=== PATIENT | male | born 1940 | race Caucasian/White ===

== ENCOUNTER 2018-05-03 02:04 | Inpatient (IN) ==
--- NOTE | 2018-05-03 02:21 | PROVIDER DOCUMENTATION ---
HPI-Neurological Disorder - General Chief Complaint: Altered Mental Status Stated Complaint: ams Time Seen by Provider: 05/03/18 02:06 Source: patient, family, EMS (called to transport pt now with AMS and chest congestion, diaphoresis) Allergies/Adverse Reactions: Patient Allergies Allergy/AdvReac Type Severity Reaction Status Date / Time metformin Allergy DIARRHEA Verified 05/02/18 18:55 Home Medications: Home Medication List Medication Instructions Recorded Confirmed Last Taken Type LISINOpril [Prinivil] 40 mg PO QAM 09/07/14 05/03/18 12/17/14 20:00 History Cyanocobalamin (Vitamin B-12) 1,000 mcg PO DIRECTED #1 ml 05/28/15 05/03/18 Unknown Rx [Vitamin B-12] ATORVAstatin [Lipitor] 40 mg PO QHS 05/03/18 05/03/18 Unknown History Azathioprine [Imuran] 50 mg PO DAILY 05/03/18 05/03/18 Unknown History Clopidogrel Bisulfate [Plavix] 75 mg PO HS 05/03/18 05/03/18 Unknown History Donepezil [Aricept] 5 mg PO QHS 05/03/18 05/03/18 Unknown History Ergocalciferol (Vitamin D2) 50,000 unit PO Q7D 05/03/18 05/03/18 Unknown History [Vitamin D] Fluorouracil 5 gm MC BID 05/03/18 05/03/18 Unknown History Lisinopril 20 mg PO HS 05/03/18 05/03/18 Unknown History Lorazepam [Ativan] 1 mg PO QHS 05/03/18 05/03/18 Unknown History Memantine HCl [Namenda Xr] 28 mg PO DAILY 05/03/18 05/03/18 Unknown History Quetiapine [Seroquel] 75 mg PO QHS 05/03/18 05/03/18 Unknown History Sertraline [Zoloft] 100 mg PO DAILY 05/03/18 05/03/18 Unknown History l Gasseri/B Bifidum/B Longum 1 each PO PRN PRN 05/03/18 05/03/18 Unknown History [Goodson' [facility] Capsule] - History of Present Illness-Neuro Nature of Presenting Problem: seen and evaluated here, [facility] night of may 02 and brought back with AMS , cough and congestion per Dr Cheryle Goodson. Dr Goodson viewed the patient with me on arrival and certifies to me that pt is not at his jovial self and baseline of earlier this same night. Complaint earlier viist tonight of weakness, cough, SOB, diarrhea past 4 days. CXR read a s no acute changes, chronic problems of A Fib, DM and component of Dementia. Onset/Duration: reports: 1-3 hours ago Timing: reports: still present (became poorly responsive to NH staff and family) Character of Altered Mental Status: reports: disoriented, confused, decreased responsiveness Any recent trauma/injury?: reports: none New weakness or altered sensation location:: reports: none Cognitive Baseline: poor alertness Gait Baseline: walks without assistance Associated Symptoms: reports: short of breath, confusion, fatigue, weakness Similar Symptoms Previously?: Yes Recently seen or treated by another doctor?: Yes Review of Systems - Adult - REVIEW OF SYSTEMS - ADULT Constitutional: reports: no symptoms reported, see roland PICKERING Eyes: reports: no symptoms reported Ears, Nose, Mouth & Throat: reports: no symptoms reported Cardiovascular: reports: no symptoms reported Respiratory: reports: cough, shortness of breath, other (RATTLE IN CHEST 1 WK.) Gastrointestinal: reports: no symptoms reported Genitourinary: reports: no symptoms reported Musculoskeletal: reports: no symptoms reported Integumentary: reports: no symptoms reported Neurological: reports: no symptoms reported Psychiatric: reports: no symptoms reported Endocrine: reports: no symptoms reported Hematologic/Lymphatic: reports: no symptoms reported Allergic/Immunologic: reports: no symptoms reported All Other Systems: Reviewed and Negative Past History - Adult - PAST MEDICAL HISTORY-ADULT Review of Records: reports: Old Records Reviewed Major Childhood Illnesses: reports: denies history Cardiovascular: reports: A-Fib, CAD, HTN, hyperlipidemia Respiratory: reports: denies history Gastrointestinal: reports: denies history Obstetrical/Gynecological: reports: denies history Genitourinary: reports: prostate cancer Musculoskeletal: reports: other (gout; myasthenia gravis) Neurological: reports: dementia Endocrine/Immune: reports: Diabetes Other Conditions: reports: denies history - PRIOR SURGERIES/PROCEDURES Surgical/Procedure History: reports: reviewed, not pertinent, other (TURP, thymus gland removal) - IMMUNIZATION STATUS Childhood Immunizations: See Nurse Assessment Flu Vaccine: UTD - FAMILY HISTORY Family History: reviewed, not pertinent Physical Exam- Neurological - Physical Exam-Neuro Initial Vital Signs Reviewed: Yes General Appearance: mild distress, slow to respond Eye Exam: bilateral eye: PERRL, EOMI HENMT: moist mucous membranes Head Injury: no evidence of injury Neck: non-tender, full range of motion Respiratory: rales, other (mild tachypnea and mild increased WOB, diaphoretic) Cardiovascular: irregularly irregular Abdominal Exam: normal bowel sounds, non tender, soft Extremity: normal range of motion, non-tender. 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 negative: facial asymmetry, facial droop Motor/Sensory: no motor deficit Neurologic: grossly normal Integumentary: normal color, diaphoresis Psych/Mental Status: disoriented x 3 - Glascow Coma Scale Best Eye Response: (4) open spontaneously Best Verbal Response: (2) incomprehsible sounds Best Motor Response: (5) localizes to pain Total Glascow Score: 11 (clearly decreased from 3-4hr ago) Progress - PLAN OF CARE/RESULTS Progress/Plan/Lab Results: Vital Signs - 8 hr 05/03/18 02:14 05/03/18 02:39 05/03/18 03:09 Temperature 99.6 F Pulse Rate 88 90 89 Respiratory Rate 20 19 26 H Blood Pressure 95/65 99/74 120/92 O2 Sat by Pulse Oximetry 90 L 95 94 L 05/03/18 03:14 05/03/18 03:16 05/03/18 03:19 Temperature Pulse Rate 84 84 83 Respiratory Rate 20 18 15 Blood Pressure 111/78 108/87 O2 Sat by Pulse Oximetry 96 96 97 05/03/18 03:21 05/03/18 03:24 05/03/18 03:29 Temperature Pulse Rate 83 87 84 Respiratory Rate 18 20 22 Blood Pressure 114/76 103/80 O2 Sat by Pulse Oximetry 97 97 97 05/03/18 03:31 05/03/18 03:34 05/03/18 03:39 Temperature Pulse Rate 86 88 87 Respiratory Rate 28 H 20 27 H Blood Pressure 114/74 126/107 O2 Sat by Pulse Oximetry 97 97 97 05/03/18 03:41 05/03/18 03:44 05/03/18 03:49 Temperature Pulse Rate 100 H 90 87 Respiratory Rate 19 24 16 Blood Pressure 107/78 96/71 O2 Sat by Pulse Oximetry 97 97 96 05/03/18 03:51 05/03/18 03:54 05/03/18 03:59 Temperature Pulse Rate 85 84 87 Respiratory Rate 14 21 19 Blood Pressure 110/75 106/79 O2 Sat by Pulse Oximetry 96 97 97 05/03/18 04:01 05/03/18 04:04 05/03/18 04:09 Temperature Pulse Rate 85 86 88 Respiratory Rate 16 17 20 Blood Pressure 99/84 102/70 O2 Sat by Pulse Oximetry 96 97 97 05/03/18 04:11 05/03/18 04:14 05/03/18 04:19 Temperature Pulse Rate 81 79 84 Respiratory Rate 24 16 18 Blood Pressure 94/70 118/75 O2 Sat by Pulse Oximetry 97 97 95 05/03/18 04:21 05/03/18 04:24 05/03/18 04:29 Temperature Pulse Rate 88 89 85 Respiratory Rate 20 26 H 17 Blood Pressure 104/75 111/69 O2 Sat by Pulse Oximetry 97 97 95 05/03/18 04:31 05/03/18 04:34 05/03/18 04:39 Temperature Pulse Rate 84 81 88 Respiratory Rate 18 24 19 Blood Pressure 103/68 114/85 O2 Sat by Pulse Oximetry 96 96 96 05/03/18 04:41 05/03/18 04:44 05/03/18 04:49 Temperature Pulse Rate 83 83 84 Respiratory Rate 19 20 16 Blood Pressure 115/84 113/80 O2 Sat by Pulse Oximetry 96 96 96 05/03/18 04:51 05/03/18 04:54 05/03/18 05:00 Temperature Pulse Rate 85 90 Respiratory Rate 20 19 18 Blood Pressure 102/72 O2 Sat by Pulse Oximetry 96 96 91 L 05/03/18 05:14 05/03/18 05:15 05/03/18 05:19 Temperature Pulse Rate 81 76 81 Respiratory Rate 16 16 15 Blood Pressure 103/74 107/72 O2 Sat by Pulse Oximetry 97 96 94 L 05/03/18 05:21 05/03/18 05:26 05/03/18 05:30 Temperature Pulse Rate 82 84 83 Respiratory Rate 16 16 19 Blood Pressure 107/72 O2 Sat by Pulse Oximetry 92 L 93 L 96 05/03/18 05:34 05/03/18 05:40 05/03/18 05:49 Temperature Pulse Rate 83 89 86 Respiratory Rate 15 14 14 Blood Pressure 96/71 O2 Sat by Pulse Oximetry 96 93 L 93 L 05/03/18 05:51 05/03/18 05:55 05/03/18 06:00 Temperature Pulse Rate 92 H 86 85 Respiratory Rate 14 15 16 Blood Pressure 96/66 O2 Sat by Pulse Oximetry 92 L 96 94 L 05/03/18 06:04 05/03/18 06:10 05/03/18 06:19 Temperature Pulse Rate 81 81 89 Respiratory Rate 15 14 17 Blood Pressure 96/67 O2 Sat by Pulse Oximetry 93 L 93 L 95 05/03/18 06:21 05/03/18 06:30 05/03/18 06:38 Temperature 97.3 F L Pulse Rate 85 86 84 Respiratory Rate 13 13 20 Blood Pressure 97/72 O2 Sat by Pulse Oximetry 94 L 93 L 96 05/03/18 02:34 Influenza Screen - Final Nasopharyngeal Laboratory Results - last 24 hr 05/03/18 05/03/18 05/03/18 02:22 02:26 02:34 WBC RBC Hgb Hct MCV MCH MCHC RDW Std Deviation Plt Count MPV Neut % (Auto) Lymph % (Auto) Mcintosh % (Auto) Eos % (Auto) Baso % (Auto) Neut # (Auto) Lymph # (Auto) Mcintosh # (Auto) Eos # (Auto) Baso # (Auto) D-Dimer, Quantitative Specimen Type Sample Site pH pCO2 pO2 HCO3 Base Excess Oxyhemoglobin ABG O2 Sat (Calculated) ABG O2 Saturation ABG Carboxyhemoglobin ABG Methemoglobin David Test A-a O2 Difference Total Hemoglobin Lactate Liter Flow Blood Gas Modality FiO2 % Sodium Potassium Chloride Carbon Dioxide Anion Gap BUN Creatinine Estimated GFR/1.73 m2 BUN/Creatinine Ratio Glucose POC Glucose 174 H D Calculated Osmolality Calcium Magnesium Ammonia Troponin T < 0.010 Zjc-M-Gjznyaltksk Pept Plasma Lactate 1.8 Urine Source Urine Color Urine Turbidity Urine pH Ur Specific [place] Urine Protein Ur Glucose (Stick) Ur Ketones (Stick) Urine Blood Urine Nitrite Urine Bilirubin Urobilinogen Dipstick Urine Leukocytes Urine WBC (Auto) Urine RBC (Auto) U Epithel Cells (Auto) Urine Bacteria (Auto) 05/03/18 05/03/18 05/03/18 02:34 02:34 02:34 WBC RBC Hgb Hct MCV MCH MCHC RDW Std Deviation Plt Count MPV Neut % (Auto) Lymph % (Auto) Mcintosh % (Auto) Eos % (Auto) Baso % (Auto) Neut # (Auto) Lymph # (Auto) Mcintosh # (Auto) Eos # (Auto) Baso # (Auto) D-Dimer, Quantitative 0.98 H Specimen Type Sample Site pH pCO2 pO2 HCO3 Base Excess Oxyhemoglobin ABG O2 Sat (Calculated) ABG O2 Saturation ABG Carboxyhemoglobin ABG Methemoglobin David Test A-a O2 Difference Total Hemoglobin Lactate Liter Flow Blood Gas Modality FiO2 % Sodium 142 Potassium 3.9 Chloride 108 H Carbon Dioxide 20 L Anion Gap 14 BUN 19 Creatinine 1.2 Estimated GFR/1.73 m2 59 BUN/Creatinine Ratio 16 Glucose 191 H POC Glucose Calculated Osmolality 291 Calcium 8.6 L Magnesium 1.7 Ammonia 49 Troponin T Ylq-T-Mnnaehyutgc Pept Plasma Lactate Urine Source Urine Color Urine Turbidity Urine pH Ur Specific [employer] [place] Urine Protein Ur Glucose (Stick) Ur Ketones (Stick) Urine Blood Urine Nitrite Urine Bilirubin Urobilinogen Dipstick Urine Leukocytes Urine WBC (Auto) Urine RBC (Auto) U Epithel Cells (Auto) Urine Bacteria (Auto) 05/03/18 05/03/18 05/03/18 02:34 02:34 03:08 WBC 5.67 RBC 4.63 L Hgb 15.2 Hct 45.7 MCV 98.7 MCH 32.8 H MCHC 33.3 RDW Std Deviation 12.7 Plt Count 119 L MPV 10.3 Neut % (Auto) 89.6 H Lymph % (Auto) 7.9 L Mcintosh % (Auto) 2.3 Eos % (Auto) 0.0 Baso % (Auto) 0.2 Neut # (Auto) 5.08 Lymph # (Auto) 0.45 L Mcintosh # (Auto) 0.13 Eos # (Auto) 0.00 Baso # (Auto) 0.01 D-Dimer, Quantitative Specimen Type Sample Site pH pCO2 pO2 HCO3 Base Excess Oxyhemoglobin ABG O2 Sat (Calculated) ABG O2 Saturation ABG Carboxyhemoglobin ABG Methemoglobin David Test A-a O2 Difference Total Hemoglobin Lactate Liter Flow Blood Gas Modality FiO2 % Sodium Potassium Chloride Carbon Dioxide Anion Gap BUN Creatinine Estimated GFR/1.73 m2 BUN/Creatinine Ratio Glucose POC Glucose Calculated Osmolality Calcium Magnesium Ammonia Troponin T Vdi-[id number]-Vrcblxccgtt Pept 3108 H Plasma Lactate Urine Source CATH Urine Color YELLOW Urine Turbidity CLEAR Urine pH 5.5 Ur Specific [place] 1.013 Urine Protein 70 A Ur Glucose (Stick) NEGATIVE Ur Ketones (Stick) NEGATIVE Urine Blood SMALL A Urine Nitrite NEGATIVE Urine Bilirubin NEGATIVE Urobilinogen Dipstick NORMAL Urine Leukocytes NEGATIVE Urine WBC (Auto) <10 Urine RBC (Auto) <10 U Epithel Cells (Auto) <10 Urine Bacteria (Auto) NEGATIVE 05/03/18 03:45 WBC RBC Hgb Hct MCV MCH MCHC RDW Std Deviation Plt Count MPV Neut % (Auto) Lymph % (Auto) [place] % (Auto) Eos % (Auto) Baso % (Auto) Neut # (Auto) Lymph # (Auto) Mcintosh # (Auto) Eos # (Auto) Baso # (Auto) D-Dimer, Quantitative Specimen Type ARTERIAL Sample Site R RADIAL pH 7.36 pCO2 36 pO2 121 H HCO3 21.5 Base Excess -4.4 L Oxyhemoglobin 96.4 ABG O2 Sat (Calculated) 21.6 ABG O2 Saturation 99.5 ABG Carboxyhemoglobin 1.70 ABG Methemoglobin 1.4 David Test YES A-a O2 Difference 119.0 Total Hemoglobin 15.8 Lactate 1.40 Liter Flow 5.0 Blood Gas Modality CANNULA FiO2 % 40.0 Sodium Potassium Chloride Carbon Dioxide Anion Gap BUN Creatinine Estimated GFR/1.73 m2 BUN/Creatinine Ratio Glucose POC Glucose Calculated Osmolality Calcium Magnesium Ammonia Troponin T Ukq-K-Xyimvzkwkyz Pept Plasma Lactate Urine Source Urine Color Urine Turbidity Urine pH Ur Specific [employer] Urine Protein Ur Glucose (Stick) Ur Ketones (Stick) Urine Blood Urine Nitrite Urine Bilirubin Urobilinogen Dipstick Urine Leukocytes Urine WBC (Auto) Urine RBC (Auto) U Epithel Cells (Auto) Urine Bacteria (Auto) Orders Category Date Time Status [place] Insertion ORDERED Care 05/03/18 02:32 Active Saline Loc NOW Care 05/03/18 02:28 Active CHEST-PORTABLE [RAD] Stat Exams 05/03/18 02:[address] HEAD W/O CONTRAST [CT] Stat Exams 05/03/18 04:38 Taken ABG [RESP] Routine Lab 05/03/18 03:45 Completed AMMONIA [CHEM] Stat Lab 05/03/18 02:34 Completed BLOOD CULTURE [BLDCUL] Stat Lab 05/03/18 02:34 Results BMP [BASIC METABOLIC PANEL] [CHEM] Stat Lab 05/03/18 02:34 Completed CBC WITH ELECTRONIC DIFF [HEME] Stat Lab 05/03/18 02:34 Completed D-DIMER [COAG] Stat Lab 05/03/18 02:34 Completed INFLUENZA SCREEN A/B Stat Lab 05/03/18 02:34 Completed LACTATE, PLASMA [CHEM] Stat Lab 05/03/18 02:34 Completed MAGNESIUM [CHEM] Stat Lab 05/03/18 02:34 Completed PRO B-NATRIURETIC PEPTIDE Stat Lab 05/03/18 02:34 Completed TROPONIN T Stat Lab 05/03/18 02:22 Completed URINALYSIS W/POSS RFLX CULT [URINALYSIS] Stat Lab 05/03/18 03:08 Completed Furosemide [Lasix] Med 05/03/18 04:37 Discontinued 40 mg IV NOW ONE EKG [EKG] Stat Ther 05/03/18 02:28 Ordered EKG [EKG] Stat Ther 05/03/18 02:28 Ordered Result Diagrams: 05/03/18 02:34 05/03/18 02:34 - XRAY 1 XRAY Study: Chest Impression: Abnormal (FLUID OVERLOADED,), See EMR Report - CT/MRI 1 CT Study: Head Impression: Normal, See EMR Report - CONSULTS/PCP/HOSPITALIST Notification #1 *Consult/PCP/Hospitalist*: DR GONZALEZ Time Discussed: 05:00 (DECIDED AGAINST CTA CHEST) Consult Disposition: Admit Departure - Departure Date of Disposition Decision: 05/03/18 Time of Disposition Decision: 06:57 DIAGNOSIS: SOB (shortness of breath), Altered mental state, Fluid overload Disposition: ADMITTED INPATIENT 09 Certified Medical Emergency: Emergent Condition: Fair - Critical Care Note This patient required my direct & personal management of CC.: No Attestation - Physician/ SOFIE Attestation Patient care was provided by Advanced Practice Provider:: No The physician spent face to face time with patient:: Yes Advanced Practice Provider documentation review:: Supervising physician onsite and consulted in the evaluation and care of this patient. The physician did have a face to face encounter with the patient. - NIH Stroke Scale NIH Scale Untestable Comment: RESPONSIVE TO PAIN BUT NOT VERBAL STIMULATION Modified [place] Score Criteria: 3-moderate disability
[2018-05-03 03:00] LABS: BASO# 0.01 X1000 (0.0-0.2); BASO% 0.2 % (0.0-0.8); HEMATOCRIT 45.7 % (42.0-52.0); HEMOGLOBIN 15.2 g/dL (14.0-18.0); LYMPH# 0.45 X1000 (1.2-3.4); LYMPH% 7.9 % (20.5-51.1); MCH 32.8 PG (27-31); MCHC 33.3 g/dL (33-37); MCV 98.7 FL (81-99); MONO# 0.13 X1000 (0.11-0.59); MONO% 2.3 % (1.7-9.3); MPV 10.3 FL (7.4-10.4); NEUT# 5.08 X1000 (1.4-6.5); NEUT% 89.6 % (42.2-75.2); PLT 119 X1000 (130-400); RBC 4.63 XMIL (4.7-6.1); RDW 12.7 % (11.5-14.5); WBC 5.67 X1000 (4.8-10.8)
[2018-05-03 03:14] LABS: URINE SOURCE CATH
[2018-05-03 03:17] LABS: BILIRUBIN URINE NEGATIVE (NEGATIVE); BLOOD URINE SMALL (NEGATIVE); COLOR YELLOW; GLUCOSE URINE NEGATIVE (NEGATIVE); KETONE URINE NEGATIVE (NEGATIVE); LEUKOCYTES URINE NEGATIVE (NEGATIVE); NITRITE URINE NEGATIVE (NEGATIVE); PH URINE 5.5; PROTEIN URINE 70 mg/dL (NEGATIVE); SP GRAVITY URINE 1.013; TURBIDITY URINE CLEAR (CLEAR); UROBILINOGEN URINE NORMAL (NORMAL)
[2018-05-03 03:18] LABS: UR EPITHELIAL CELLS <10 /HPF (<10); URINE BACTERIA NEGATIVE /HPF; URINE RBC <10 /HPF (<10); URINE WBC <10 /HPF (<10)
[2018-05-03 03:33] LABS: CALCIUM 8.6 mg/dL (8.8-10.2); CREATININE 1.2 mg/dL (0.7-1.2); MAGNESIUM 1.7 mg/dL (1.5-2.7); POTASSIUM 3.9 mmol/L (3.5-5.1)
[2018-05-03 04:03] LABS: ALLEN TEST YES; BE -4.4 mmoll (-3.0-3.0); BLOOD TYPE ARTERIAL; HCO3-(ACT) 21.5 mmoll (20.0-26.0); METHB 1.4 % (0.0-1.5); MODALITY CANNULA; O2(CT) 21.6 mL/dL (15.0-23.0); O2HB 96.4 % (95.0-99.0); PCO2(98.6) 36 mmHg (35-45); PO2(98.6) 121 mmHg (60-100); SAMPLE BLOOD; SAO2 99.5 % (95.0-100.0); THB 15.8 g/dL (11.5-17.4); pH(98.6) 7.36 (7.35-7.45)
[2018-05-03] MEDS ORDERED: LASIX IV ONE (04:37)
--- NOTE | 2018-05-03 07:27 | EKG Report ---
Test Performed on : 05/03/2018 02:05:35 AM Test Reason : sob Blood Pressure : / mmHG Vent. Rate : 097 BPM Atrial Rate : 101 BPM P-R Int : 000 ms QRS Dur : 096 ms QT Int : 304 ms P-R-T Axes : 000 208 058 degrees QTc Int : 386 ms Atrial fibrillation. Right superior axis deviation Nonspecific ST and T wave abnormality Abnormal ECG No previous ECGs available Unconfirmed Result
--- NOTE | 2018-05-03 07:31 | Diag Imaging Result Doc PS360 ---
EXAM: CHEST-PORTABLE 05/03/2018 HISTORY: worsened SOB,rales TECHNIQUE: AP portable at 0 to 48 hours COMMENT: The lungs are less well-expanded than on 05/02/2018. There is some questionable increase in opacity in the medial right base which may be indicative of atelectasis or pneumonia. IMPRESSION: Questionable bronchopneumonia. Electronically signed by Jin Jordan 05/03/2018 7:28 AM
--- NOTE | 2018-05-03 08:27 | Diag Imaging Result Doc PS360 ---
EXAM: CT HEAD W/O CONTRAST INDICATION: AMS TECHNIQUE: This exam was performed using automated exposure control, adjustment of mA or kV according to patient size, and/or use of iterative reconstruction technique. COMPARISON: 05/24/2013 FINDINGS: There is low-attenuation in the periventricular and subcortical white matter suggesting fairly advanced microangiopathy that is essentially stable as compared to the previous study. There is moderate age-related diffuse brain atrophy. There is no definite acute infarct given the limited sensitivity of CT versus MRI. There is no discrete intracranial mass, mass effect, or intracranial hemorrhage. There is minimal right maxillary sinus mucosal thickening. Surrounding soft tissues and bony structures are essentially unremarkable, otherwise. IMPRESSION: Essentially stable chronic changes as described but no definite acute intracranial pathology. Electronically signed by Pelon Sanchez 05/03/2018 8:25 AM
[2018-05-03] MEDS ORDERED: XOPENEX NEB INH SCH (09:04)
[2018-05-03 09:10] LABS: INR 0.95; PROTIME 13.5 Seconds (11.0-16.0); PTT 25.8 Seconds (22.3-41.8)
[2018-05-03] MEDS: IMURAN PO SCH (10:40)
[2018-05-03] MEDS: ROCEPHIN 1 GM in NS 50 ML IV SCH (10:40)
[2018-05-03] MEDS: SOLU-MEDROL IV SCH ×2 (10:40→21:06)
[2018-05-03] MEDS: NAMENDA XR PO SCH (10:40)
[2018-05-03] MEDS: VITAMIN D PO SCH (10:40)
[2018-05-03] MEDS: ZOLOFT PO SCH (10:40)
[2018-05-03] MEDS: ZITHROMAX 500 MG/NS 500 MG/250 ML IVPB IV SCH (11:10)
--- NOTE | 2018-05-03 11:17 | ECHO REPORT ---
ORDER DATE: 05/03/2018 ECHOCARDIOGRAM: INDICATION: Dyspnea, volume overload. FINDINGS: 1. The right atrium appears normal in size at 3.3 cm. 2. Mild tricuspid regurgitation. RV systolic pressure of 27. 3. Normal RV size and systolic function. 4. Trace pulmonic insufficiency. 5. Normal left atrial size with a dimension of 3.6 cm. 6. No mitral valve prolapse. Trace mitral regurgitation. 7. Normal LV size, end-diastolic dimension of 5.1. Mild to moderate left ventricular hypertrophy with a posterior and interventricular septal wall thickness of 1.4 cm each. Reduced LV systolic function with an estimated EF of 35% to 40%. Previous echo was noted to have an EF of 35% in 2014. There is global hypokinesis. 8. Aortic valve opens well. There is mild insufficiency. No stenosis. 9. Aorta appears somewhat enlarged with an ascending thoracic aorta dimension of 4.3 cm. 10. No pericardial effusion seen. cc: MD Arcadio Quinn MD
[2018-05-03] MEDS: XOPENEX NEB INH SCH ×3 (14:45→23:35)
[2018-05-03] MEDS: HUMALOG SUBQ SCH ×3 (17:27→21:05)
--- NOTE | 2018-05-03 19:29 | PROGRESS NOTE ---
DATE: 05/03/2018 SUBJECTIVE: The patient's chart was reviewed. In summary, patient presented to the emergency department yesterday evening with shortness of breath. Upon arrival, patient was found to be in atrial fibrillation with rapid ventricular response. The patient was provided a dose of metoprolol. Additionally, he was found to have upper respiratory symptoms consistent with an upper respiratory tract infection. The patient was treated with IV prednisone and Rocephin therapy. He was discharged back to rehabilitation. Upon arrival home, his nighttime medications were given. Unfortunately, he then became unresponsive and was returned to the emergency department. Upon arrival, a repeat evaluation was pursued. Chest x-ray suggested questionable rhonchi with pneumonia. The patient was treated supportively. IV Lasix was provided. With supportive care, patient's mental status returned to baseline. The patient was originally seen this morning. At that time, patient was interactive. This evening, patient is more interactive. He currently is being treated with Rocephin, azithromycin, and Solu-Medrol for his upper respiratory condition. His energy level remains very low. He remains quite weak from his current condition. He denies fevers, chills, nausea, vomiting, or chest discomfort at present time. OBJECTIVE: Vital Signs: Temperature 97.9, heart rate 94, respirations 20, blood pressure 119/82. General: No acute distress. Cardiovascular: Irregularly irregular. No significant murmurs, rubs or gallops. Pulmonary: Clear to auscultation bilaterally. Abdomen: Soft, nontender, nondistended. Positive bowel sounds. Extremities: Moves all extremities well. No significant clubbing, cyanosis or edema. Dermatologic: Evaluation reveals no evidence of rash. ASSESSMENT AND PLAN: 1. Bronchopneumonia - Initially, patient was noted to have considerable wheezing and shortness of breath. Aggressive intervention was pursued. The patient was placed on Rocephin, azithromycin, IV Solu-Medrol, and bronchodilators. With this aggressive intervention, his symptoms have improved considerably. We will continue his current regimen for now. 2. Mild volume overload - Lasix was provided in the Emergency Department. Echocardiogram suggested low, but preserved ejection fraction of 35% to 40%. We will remain aware. 3. Atrial fibrillation with rapid ventricular response - Patient has a prolonged history of atrial fibrillation. He is not a candidate for anticoagulation secondary to his extreme fall risk. We will continue his home regimen. We will adjust as necessary. I suspect the rapid ventricular response was reactive to his underlying illness. 4. Hyperglycemia - This likely is secondary to steroid intervention. We will continue sliding scale insulin. 5. Hypertension - Patient's blood pressure is reasonably controlled at present time. His medications have been adjusted appropriately. 6. Hyperlipidemia - We will continue patient on atorvastatin therapy. 7. Myasthenia gravis - We will continue azathioprine therapy. Symptoms are controlled. 8. Alteration of mental status - This likely was secondary to medications. His mentation has returned to baseline. We will continue his home regimen. 9. Diarrhea - Stool studies returned negative. We will continue to hold [*] therapy. 10. Profound weakness - This has been increasing over the course of the last several weeks. We will treat his acute issues as noted. We will continue physical therapy. Patient may require rehabilitation at discharge. 11. Disposition - At this point, patient continues to require [facility] care in a hospital setting. We will plan discharge to his assisted living facility versus rehab once appropriate. cc: Arcadio Cueva MD
[2018-05-03] MEDS ORDERED: LIPITOR PO SCH (21:00)
[2018-05-03] MEDS: PRINIVIL PO SCH (21:06)
[2018-05-03] MEDS: ATIVAN PO SCH (21:06)
[2018-05-03] MEDS: LIPITOR PO SCH (21:06)
[2018-05-03] MEDS: SEROQUEL PO SCH (21:06)
[2018-05-03] MEDS: PLAVIX PO SCH (21:06)
[2018-05-04] MEDS: XOPENEX NEB INH SCH ×5 (03:35→20:08)
[2018-05-04] MEDS: HUMALOG SUBQ SCH ×4 (06:57→21:45)
[2018-05-04] MEDS: LOVENOX SUBQ SCH (09:09)
[2018-05-04] MEDS: ROCEPHIN 1 GM in NS 50 ML IV SCH (09:09)
[2018-05-04] MEDS: SOLU-MEDROL IV SCH (09:09)
[2018-05-04] MEDS: NAMENDA XR PO SCH (09:10)
[2018-05-04] MEDS: ZOLOFT PO SCH (09:10)
--- NOTE | 2018-05-04 09:47 | HISTORY AND PHYSICAL ---
PRIMARY CARE PROVIDER: Dr. Arcadio Cueva. CHIEF COMPLAINT: Altered mental status. HISTORY OF PRESENT ILLNESS: Mr. Sanchez is a 77-year-old male who was seen yesterday in our emergency department on 05/02/2018 for some shortness of breath. During this time, he was found to be in atrial fibrillation with rapid ventricular response. He was given a dose of metoprolol as well as a dose of Solu-Medrol and a 1 L normal saline bag of fluids. He was discharged back to his assisted living facility at [place]. From what I understand, once he arrived back to the assisted living facility, they did give him his night medications of Ativan and Seroquel. Later on, after these medications being administered, the patient was found to be unresponsive and very drowsy. They did call an ambulance to bring him back to the ER for further evaluation. The patient was noted upon initial arrival back to the ER to be obtunded. At this time, he was alert and oriented x0 and was reported to be unresponsive to painful stimuli. For further evaluation, they did perform a CT head noncontrast which showed no acute intracranial abnormalities. They did repeat a chest x-ray which did show that he may have questionable bronchopneumonia, as well. EKG at this time did still show atrial fibrillation, though the rate is controlled at this time at 97. Upon the time of our assessment, the patient's mentation had improved greatly. He was awake and alert. He was oriented to person and place but not time. The patient does have some dementia, and his states that it is not unusual for him to not know the year or month. He was able to recognize his at bedside and state her full name. She reports at this time he does seem to be back to his baseline mentation. Though they have reported that the patient has had increased weakness, he has had reportedly 4 days of diarrhea that has been loose which is brown in color, though she denies him having any abdominal pain, nausea or vomiting. He has had chest congestion with a cough, as well, though at this time, the patient denies any headache, chest pain, dysuria, or pain or swelling in extremities. The patient does have a history of having an ejection fraction of 35% to 40%. He was complaining of some dyspnea and did have rales noted upon initial arrival to the ER. It was thought maybe that the 1 L normal saline bolus that was given during his prior ER visit might have caused him to be slightly fluid overloaded. He did receive a one-time dose of Lasix IV in the ER. He has been started on empiric antibiotics for bronchopneumonia and blood cultures have been obtained. At this time, the patient will be admitted for further treatment and evaluation. REVIEW OF SYSTEMS: A 14-point review of systems was conducted with the patient and all were negative except for pertinent positives mentioned in the above HPI. PAST MEDICAL HISTORY: 1. History of mild carotid artery disease diagnosed in 2014. 2. Ischemic heart disease. 3. History of right renal cyst. 4. Dementia. 5. Diabetes which has been currently diet controlled. 6. Essential hypertension. 7. Gout. 8. History of hematuria followed by Dr. Bauman. 9. History of prostate cancer. 10. History of hyperlipidemia. 11. Insomnia. 12. Left ventricular hypertrophy. 13. Myasthenia gravis. 14. History of atrial fibrillation, though the patient is not on anticoagulation therapy at this time due to he has been deemed not a candidate due to his extreme fall risk. PAST SURGICAL HISTORY: 1. Thymectomy secondary to myasthenia gravis. 2. Prostatectomy. SOCIAL HISTORY: The patient is a resident at [facility], [place]. He is . His was present during the time of my examination. The patient has no known history of tobacco, alcohol, or illicit drug use. FAMILY HISTORY: 1. Positive for his father passing away at age 83 secondary to coronary artery disease. 2. His mother secondary to complications from hepatoma. ALLERGIES: The patient has allergies to metformin, Exelon patches, and Norvasc. HOME MEDICATIONS: 1. Lipitor 40 mg p.o. at bedtime. 2. Imuran 50 mg p.o. daily. 3. Plavix 75 mg p.o. at bedtime. 4. Vitamin B12 1000 mcg p.o. as directed. 5. Aricept 5 mg p.o. at bedtime. 6. Vitamin D 50,000 units p.o. every 7 days. 7. Fluorouracil 5 [*] 8. [employer] Capsule one p.o. p.r.n. 9. Lisinopril 20 mg p.o. at bedtime. 10. Prinivil 40 mg p.o. each morning. 11. Ativan 1 mg p.o. at bedtime. 12. Namenda XR 28 mg p.o. daily. 13. Seroquel 75 mg p.o. at bedtime. 14. Zoloft 100 mg daily. DIAGNOSTIC DATA/LABORATORY RESULTS: White blood cell count is 5670, hemoglobin 15.2, hematocrit 45.7, platelet count 119. PT 13.5, INR 0.95, PTT 25.8. D-dimer 0.98. Sodium 142, potassium 3.9, chloride 108, serum bicarbonate 20, BUN 19, creatinine 1.2 with a GFR of 59, glucose 191, calcium 8.6, magnesium 1.7. Ammonia level is 49. Troponin is less than 0.01. ProBNP 3108. Plasma lactate 1.8. Urinalysis obtained via catheter was positive for protein and a small amount of blood though was negative for glucose, ketones, nitrites, leukocytes, white blood cells, or bacteria. Arterial blood gases were obtained on nasal cannula at 40% FiO2: pH 7.36, pCO2 is 36, pO2 is 121, HCO3 is 21.5 with a base excess of negative 4.4 and an O2 saturation of 99.5. EKG showed atrial fibrillation with a right superior axis deviation at a rate of 97 with a QTc of 386. Head CT showed essentially stable chronic changes described but no definite intracranial pathology. Please see report for full findings. Chest x-ray did show a questionable bronchopneumonia by evidence of a questionable increase in the opacity in the medial right base which may be indicative of atelectasis or pneumonia. PHYSICAL EXAMINATION: VITAL SIGNS: Temperature 97.4, heart rate 85, respirations 19, blood pressure 109/75 with an oxygen saturation of 95% per nasal cannula at 3 L. GENERAL: Mr. Sanchez is a pleasant 77-year-old elderly male. He was resting in the ER stretcher. He was in no acute distress. He was awake and alert though was only oriented to person and place, not time. HEENT: Head is atraumatic, normocephalic. Pupils are equal, round, reactive to light, were 3 mm bilaterally and brisk. Oral mucosa is moist. Oropharynx is clear. NECK: Supple, trachea midline. CARDIOVASCULAR: The patient has S1, S2. No murmurs, gallops, or rubs appreciated, with irregularly irregular beat. PULMONARY: Clear to auscultation in bilateral upper strauss and left lower lung strauss, though the patient did have some very slight crackles noted in right lung base. ABDOMEN: Soft, nontender, nondistended. Bowel sounds were present in all 4 quadrants, were normoactive. EXTREMITIES: No cyanosis, clubbing, or edema noted. Pulse, motor and sensory were intact in all extremities. Radial pulses and pedal pulses were 2+ bilaterally. Capillary refill is less than 3. INTEGUMENTARY: The patient's skin is pink, warm and dry. NEUROLOGICAL: As previously mentioned, the patient is alert and oriented x2 to person and place though not time. Though he does appear to have some generalized weakness, there were no focal neurologic deficits noted at this time. ASSESSMENT AND PLAN: 1. Encephalopathy. This could be multifactorial. The patient does have underlying dementia, though after leaving the ER after his initial visit, he did return back to assisted living facility once given medications of Ativan and Seroquel and shortly after was found to be unresponsive, though it does appear that this medication has had some time to wear off that the patient's mentation has improved, and at this time according to his , he does appear to be back at his baseline mentation. His CT head without contrast was negative for any acute intracranial abnormalities. We will continue to follow this closely. We have ordered for q.4 h. neuro checks. 2. Weakness. This could be multifactorial, as well. The patient has had a 4-day history of diarrhea as well as does now have a possible bronchopneumonia. This could be contributing to this. We will continue with physical therapy evaluation and will continue to follow. 3. Possible bronchopneumonia. The patient has been started on antibiotics of Rocephin and azithromycin. Blood cultures have been obtained. We will continue with incentive spirometry, as well, and will continue to follow. 4. Mild fluid volume overload. The patient does have a last known ejection fraction of 35% to 40%. Upon his initial ER visit on 05/02/2018, he was given a 1 L normal saline bolus. The patient did return dyspneic and was noted initially to have some rales upon his second ER visit. He was given a dose of IV Lasix, and since this time, this does seem to have improved. The patient now just has some very slight crackles noted in the right lung base. He is not dyspneic at this time. He is maintaining good oxygen saturation with minimal oxygen supplementation of nasal cannula at 2-3 L. Will continue to follow. We have placed orders for repeat echocardiogram for this morning. 5. History of atrial fibrillation. The patient did initially come into the ER on his first visit on May 02 with atrial fibrillation with RVR. He was given a dose of metoprolol, and since that time his heart rate has improved. He still is in atrial fibrillation though it is rate controlled with his heart rate in the 80s to 90s. We will continue to follow this. The patient was noted to be not a candidate for anticoagulation due to his fall risk. 6. Hyperlipidemia. His Lipitor has been continued. 7. Hypertension. His lisinopril has been continued. 8. Hyperglycemia. The patient does reportedly have a history of diabetes that has been diet controlled, though he did receive a dose of Solu-Medrol in the ER on his first visit on May 02. His hyperglycemia may be secondary to this. He has had coverage for this placed with sliding scale lispro insulin. 9. Diarrhea. The patient has had a 4-day history of diarrhea. Stool studies have been ordered. We are awaiting those results at this time. We will continue to follow. The patient has been placed on the medical floor with telemetry. He will have vital signs and neuro checks q.4 h. Will do strict intake and output. He will be on a healthy heart diet. DVT prophylaxis is being provided with Lovenox 40 mg subcutaneous q.24 h. Further orders and recommendations pending hospital course, diagnostic studies, and physician evaluation. Dictated by BRIANNA Sesay for Jose Ernst MD cc: MD Arcadio Jalloh MD
[2018-05-04] MEDS: IMURAN PO SCH (10:28)
--- NOTE | 2018-05-04 11:41 | PROGRESS NOTE ---
DATE: 05/04/2018 SUBJECTIVE: Overnight, patient did reasonably well. Per patient's , he did have 1 episode of delirium which quickly resolved. Cough and congestion are present, but improving. Shortness of breath is improving. The patient continues to have loose stools. Stool studies from yesterday returned negative. There has been no evidence of fevers, chills, nausea, vomiting or chest discomfort. The patient does continue to have considerable weakness. OBJECTIVE: Vital Signs: T-max 98.5 degrees, heart rate 82 to 94, respirations 15 to 25, blood pressure 119 to 158/69 to 93. General: No acute distress. Cardiovascular: Irregularly irregular. No significant murmurs, rubs, or gallops. Pulmonary: Clear to auscultation bilaterally. Abdomen: Soft, nontender, nondistended. Positive bowel sounds. Extremities: Moves all extremities well. No significant clubbing, cyanosis, or edema. Dermatologic: Evaluation reveals no evidence of rash. LABORATORY DATA: None. ASSESSMENT AND PLAN: 1. Bronchopneumonia-this was noted per chest x-ray. He is being treated with Rocephin, azithromycin, intravenous Solu-Medrol and bronchodilators. His overall condition has improved considerably from yesterday. We will continue our current regimen with the exception of decreasing Solu-Medrol to 20 mg daily. We will continue to encourage incentive spirometry and aspiration precautions. 2. Mild volume overload-patient was provided Lasix while in the emergency department. The patient appears euvolemic today. We will hold off on any further diuresis. Echocardiogram suggested an ejection fraction between 35% and 40%, similar to echocardiogram in 2014.. 3. Atrial fibrillation with rapid ventricular response-patient has achieved resolution. Heart rate is within normal limits today. He is not a candidate for full anticoagulation secondary to his extreme fall risk. 4. Hyperglycemia/diabetes-steroids have increased his blood sugars. We will continue sliding scale insulin. 5. Hypertension-blood pressure is reasonably controlled on his current regimen. 6. Hyperlipidemia-we will continue atorvastatin therapy. 7. Myasthenia gravis-the patient's symptoms are controlled with azathioprine therapy. 8. Alteration of mental status-overall, patient's condition has improved considerably. He is approaching his baseline dementia. We will continue his home regimen with the exception of holding Aricept secondary to diarrhea. 9. Diarrhea-the patient's stool studies returned negative. We will continue to hold Aricept therapy. We will consider adding cholestyramine therapy while hospitalized. 10. Profound weakness-this is increased over the course of the last several weeks. We will continue treating his acute issues as described above. We will continue physical therapy. At time of discharge, we will need to consider whether rehabilitation or home to assisted living with physical therapy is appropriate. 11. Disposition-at this point, patient continues to require [facility] care in a hospital setting. We will plan discharge home or to rehab once appropriate. cc: Arcadio Cueva MD
[2018-05-04] MEDS: ZITHROMAX 500 MG/NS 500 MG/250 ML IVPB IV SCH (12:28)
[2018-05-04] MEDS: PLAVIX PO SCH (21:44)
[2018-05-04] MEDS: PRINIVIL PO SCH (21:44)
[2018-05-04] MEDS: ATIVAN PO SCH (21:45)
[2018-05-04] MEDS: LIPITOR PO SCH (21:45)
[2018-05-04] MEDS: SEROQUEL PO SCH (21:45)
[2018-05-05] MEDS: XOPENEX NEB INH SCH ×7 (00:14→23:30)
[2018-05-05 06:56] LABS: BASO# 0.01 X1000 (0.0-0.2); BASO% 0.1 % (0.0-0.8); HEMATOCRIT 44.2 % (42.0-52.0); HEMOGLOBIN 14.5 g/dL (14.0-18.0); IMM GRAN# 0.03 X1000 (0.0-0.04); IMM GRAN% 0.3 % (0.0-0.5); LYMPH# 1.18 X1000 (1.2-3.4); LYMPH% 10.8 % (20.5-51.1); MCH 32.3 PG (27-31); MCHC 32.8 g/dL (33-37); MCV 98.4 FL (81-99); MONO# 1.14 X1000 (0.11-0.59); MONO% 10.4 % (1.7-9.3); MPV 10.6 FL (7.4-10.4); NEUT# 8.56 X1000 (1.4-6.5); NEUT% 78.4 % (42.2-75.2); PLT 142 X1000 (130-400); RBC 4.49 XMIL (4.7-6.1); RDW 12.4 % (11.5-14.5); WBC 10.92 X1000 (4.8-10.8)
[2018-05-05 07:02] LABS: LYMPHS 10 % (21-51); MONO 24 % (1-9); SEGS 66 % (42-75)
[2018-05-05 07:06] LABS: AGAP 13; ALB/GLOB RATIO 0.9; ALBUMIN 3.4 g/dL (3.5-5.0); ALKALINE PHOSPHATASE 53 U/L (32-122); BUN 41 mg/dL (8-22); CALCIUM 7.9 mg/dL (8.8-10.2); CHLORIDE 109 mmol/L (98-107); COSMO 301; ESTIMATED GFR > 60; GLUCOSE 111 mg/dL (70-104); GOT 31 U/L (10-34); GPT 12 U/L (10-44); POTASSIUM 3.1 mmol/L (3.5-5.1); SODIUM 146 mmol/L (136-145); TCO2 24 mmol/L (25-35); TOTAL PROTEIN 7.1 g/dL (6.3-8.3)
[2018-05-05] MEDS: HUMALOG SUBQ SCH ×4 (07:09→21:53)
[2018-05-05] MEDS ORDERED: KLOR-CON PO ONE (08:46)
[2018-05-05] MEDS ORDERED: SOLU-MEDROL IV SCH (09:00)
[2018-05-05] MEDS: ROCEPHIN 1 GM in NS 50 ML IV SCH (10:44)
[2018-05-05] MEDS: LOVENOX SUBQ SCH (10:45)
[2018-05-05] MEDS: ZOLOFT PO SCH (10:45)
[2018-05-05] MEDS: NAMENDA XR PO SCH (10:46)
[2018-05-05] MEDS: IMURAN PO SCH (10:46)
[2018-05-05] MEDS: ZITHROMAX 500 MG/NS 500 MG/250 ML IVPB IV SCH (10:46)
--- NOTE | 2018-05-05 14:39 | PROGRESS NOTE ---
DATE: 05/05/2018 SUBJECTIVE: Yesterday, patient's noted increasing confusion and agitation. He did not sleep well overnight. From a pulmonary standpoint, he is achieving improvement. He denies significant cough, congestion, and wheezing. Additionally, his loose stools are slowly improving. The patient continues to have considerable weakness. Physical therapy has been consulted. OBJECTIVE: Vital Signs: T-max 98.0, heart rate 69 to 100, respirations 15 to 20, blood pressure 135 to 151/77 to 95. General: No acute distress. Cardiovascular: Irregularly irregular. No significant murmurs, rubs, or gallops. Pulmonary: Clear to auscultation bilaterally. Abdomen: Soft, nontender, nondistended. Positive bowel sounds. Extremities: Moves all extremities well. No significant clubbing, cyanosis, or edema. Dermatologic: Evaluation reveals no evidence of rash. LABORATORY DATA: White blood cell count 10.92, hemoglobin 14.5, hematocrit 44.2, platelet count 142,000. Sodium 146, potassium 3.1, chloride 109, bicarbonate 24. BUN 41, creatinine 1.0, glucose 111, calcium 7.9. Total bilirubin 0.40, total protein 7.1, albumin 3.4, alkaline phosphatase 53, AST 31, ALT 53. ASSESSMENT AND PLAN: 1. Bronchopneumonia-patient is currently being treated with Rocephin, azithromycin, intravenous Solu-Medrol and bronchodilators. We will transition patient from Solu-Medrol to prednisone therapy. We will continue to encourage incentive spirometry and aspiration precautions. Symptoms are improving. 2. Mild volume overload-this was diagnosed upon admission. Lasix was provided. On examination today, patient does not have significant edema or volume excess. We will continue his current medical regimen. Of note, echocardiogram suggested an ejection fraction between 35% and 40%. This was similar to previous echocardiogram in 2014. 3. Atrial fibrillation with rapid ventricular response-the patient is well controlled with his current medical regimen. He is asymptomatic. He is not a candidate for full anticoagulation secondary to his extreme fall risk. 4. Hyperglycemia/diabetes-blood sugars have increased secondary to steroid use. We will continue sliding scale insulin. 5. Hypertension-blood pressure is trending upwards. We will resume his home regimen. 6. Hyperlipidemia-we will continue atorvastatin therapy. 7. Myasthenia gravis-patient is well controlled with azathioprine therapy. 8. Alteration of mental status-the patient has achieved significant improvement from admission. He is having some increasing agitation, likely steroid associated. We will remain aware. 9. Diarrhea-stool studies returned negative. His symptoms are slowly improving. 10. Profound weakness-unfortunately, patient failed outpatient intervention. We will plan referral for inpatient rehabilitation. 11. Disposition-at this point, patient continues to require [facility] care in a hospital setting. We will plan discharge to rehabilitation once a bed is available. cc: Arcadio Cueva MD
[2018-05-05] MEDS: LIPITOR PO SCH (21:54)
[2018-05-05] MEDS: ATIVAN PO SCH (21:54)
[2018-05-05] MEDS: PRINIVIL PO SCH (21:54)
[2018-05-05] MEDS: SEROQUEL PO SCH (21:54)
[2018-05-05] MEDS: PLAVIX PO SCH (21:54)
[2018-05-06] MEDS: XOPENEX NEB INH SCH ×6 (03:47→23:01)
[2018-05-06] MEDS: HUMALOG SUBQ SCH ×4 (06:30→22:37)
[2018-05-06] MEDS: PREDNISONE PO SCH (08:55)
[2018-05-06] MEDS: IMURAN PO SCH (08:55)
[2018-05-06] MEDS: NAMENDA XR PO SCH (08:55)
[2018-05-06] MEDS: LOVENOX SUBQ SCH (08:56)
[2018-05-06] MEDS: PRINIVIL PO SCH ×2 (08:56→22:37)
[2018-05-06] MEDS: ROCEPHIN 1 GM in NS 50 ML IV SCH (08:56)
[2018-05-06] MEDS: ZOLOFT PO SCH (08:56)
[2018-05-06] MEDS: ZITHROMAX 500 MG/NS 500 MG/250 ML IVPB IV SCH (10:00)
[2018-05-06] MEDS: PLAVIX PO SCH (22:36)
[2018-05-06] MEDS: LIPITOR PO SCH (22:36)
[2018-05-06] MEDS: ATIVAN PO SCH (22:36)
[2018-05-06] MEDS: SEROQUEL PO SCH (22:37)
[2018-05-07] MEDS: XOPENEX NEB INH SCH ×6 (03:27→23:49)
--- NOTE | 2018-05-07 03:44 | PROGRESS NOTE ---
DATE: 05/06/2018 SUBJECTIVE: This morning, the patient stated he was doing reasonably well. He continued to have some confusion yesterday. This evening, the patient again states he is doing well. [facility] has been consulted. A rehabilitation bed will not be available until Thursday. The patient does continue to work with physical therapy. His loose stools are improving. His energy level is low, but improving. OBJECTIVE: T-max 98.7 degrees, heart rate 66 to 100, respirations 15 to 20, blood pressure 134 to 164 over 78 to 104.General: No acute distress. Cardiovascular: Irregularly irregular. No significant murmurs, rubs, or gallops. Pulmonary: Clear to auscultation bilaterally. Abdomen: Soft, nontender, nondistended. Positive bowel sounds. Extremities: Moves all extremities well. No significant clubbing, cyanosis, or edema. Dermatologic: Evaluation reveals no evidence of rash. LABORATORY DATA: None. ASSESSMENT AND PLAN: 1. Bronchopneumonia. The patient is being treated with Rocephin, azithromycin, bronchodilators, and prednisone therapy. Overall, condition has improved considerably. We will continue incentive spirometry and aspiration precautions. 2. Mild volume overload. The patient was provided Lasix while in the emergency department. He currently is euvolemic. At this point, he does not require repeat intervention. 3. Atrial fibrillation, with rapid ventricular response. The patient's rate is controlled. He is not a candidate for full anticoagulation, secondary to extreme fall risk. 4. Hyperglycemia/diabetes. Blood sugars have increased, associated with steroid use. We will continue sliding scale insulin. 5. Hypertension. Blood pressure is slightly elevated. His home regimen was resumed yesterday. We will continue to follow. 6. Hyperlipidemia. We will continue atorvastatin therapy. 7. Myasthenia gravis. Symptoms are controlled with azathioprine therapy. 8. Alteration of mental status. The patient has achieved improvement, with exception of intermittent agitation. He is approaching his baseline. 9. Diarrhea. Patient has achieved improvement with time. We will follow this. We will continue to hold Aricept therapy. 10. Profound weakness. We will continue patient on physical therapy. We will plan rehabilitation at discharge. 11. Disposition. At this point, the patient continues to require [facility] in a hospital setting. We will plan discharge home once appropriate. cc: Arcadio Cueva MD
[2018-05-07] MEDS: HUMALOG SUBQ SCH ×3 (06:55→16:39)
[2018-05-07] MEDS: PRINIVIL PO SCH ×2 (08:47→21:10)
[2018-05-07] MEDS: IMURAN PO SCH (08:47)
[2018-05-07] MEDS: ZOLOFT PO SCH (08:47)
[2018-05-07] MEDS: PREDNISONE PO SCH (08:47)
[2018-05-07] MEDS: NAMENDA XR PO SCH (08:48)
[2018-05-07] MEDS: LOVENOX SUBQ SCH (08:48)
[2018-05-07] MEDS: ROCEPHIN 1 GM in NS 50 ML IV SCH (08:48)
[2018-05-07] MEDS: NS NEB INH SCH (09:39)
[2018-05-07] MEDS: ZITHROMAX 500 MG/NS 500 MG/250 ML IVPB IV SCH (10:10)
[2018-05-07] MEDS: LIPITOR PO SCH (21:09)
[2018-05-07] MEDS: ATIVAN PO SCH (21:09)
[2018-05-07] MEDS: PLAVIX PO SCH (21:10)
[2018-05-07] MEDS: SEROQUEL PO SCH (21:10)
--- NOTE | 2018-05-08 00:32 | PROGRESS NOTE ---
DATE: 05/07/2018 SUBJECTIVE: Patient continues to slowly improve. This morning, patient denied significant symptoms. Over the course of the day, patient worked with physical therapy. He denies significant cough, congestion, shortness of breath, fevers, or chills. His bowel movements are returning to within normal limits. His p.o. intake remains adequate. OBJECTIVE: T-max 98.1 degrees, heart rate 54 to 84, respirations 15 to 20, blood pressure 114 to 155 over 58 to 101.General: No acute distress. Cardiovascular: Irregularly irregular. No significant murmurs, rubs, or gallops. Pulmonary: Clear to auscultation bilaterally. Abdomen: Soft, nontender, nondistended. Positive bowel sounds. Extremities: Moves all extremities well. No significant clubbing, cyanosis, or edema. Dermatologic: Evaluation reveals no evidence of rash. LABORATORY DATA: None. ASSESSMENT AND PLAN: 1. Bronchopneumonia-patient is currently being treated with Rocephin, azithromycin, prednisone therapy and bronchodilators. His pulmonary condition continues to improve. We will continue steroid taper. 2. Mild volume overload-diagnosed upon admission. He was treated with Lasix therapy. He has not required repeat treatment while hospitalized. He appears to be euvolemic. 3. Atrial fibrillation with rapid ventricular response-patient is rate controlled. He is not a candidate for anticoagulation secondary to extreme fall risk. 4. Hyperglycemia/diabetes-blood sugars are reasonably controlled at present time. We will continue sliding scale insulin. 5. Hypertension-blood pressure is reasonably controlled with his current regimen. 6. Hyperlipidemia-we will continue patient on atorvastatin therapy. 7. Myasthenia gravis-we will continue azathioprine therapy. Symptoms are controlled. 8. Alteration of mental status-patient's mental status continues to improve, approaching baseline. We will remain aware. 9. Diarrhea-patient has achieved improvement. 10. Profound weakness-we will continue physical therapy. He will require rehabilitation at discharge. 11. Disposition-at this point, patient continues to require [facility] care in a hospital setting. We will plan discharge home once appropriate. cc: Arcadio Cueva MD
[2018-05-08] MEDS: XOPENEX NEB INH SCH ×6 (02:55→23:35)
[2018-05-08] MEDS: HUMALOG SUBQ SCH ×5 (05:41→20:42)
[2018-05-08] MEDS ORDERED: BROVANA NEB ONE (07:16)
[2018-05-08] MEDS: NS NEB INH SCH ×2 (08:19→16:08)
[2018-05-08] MEDS: ROCEPHIN 1 GM in NS 50 ML IV SCH (09:00)
[2018-05-08] MEDS: IMURAN PO SCH (09:00)
[2018-05-08] MEDS: PREDNISONE PO SCH (09:00)
[2018-05-08] MEDS: NAMENDA XR PO SCH (09:00)
[2018-05-08] MEDS: PRINIVIL PO SCH ×2 (09:00→20:42)
[2018-05-08] MEDS: ZOLOFT PO SCH (09:01)
[2018-05-08] MEDS: LOVENOX SUBQ SCH (09:01)
[2018-05-08] MEDS: ZITHROMAX 500 MG/NS 500 MG/250 ML IVPB IV SCH (09:43)
--- NOTE | 2018-05-08 12:34 | PROGRESS NOTE ---
DATE: 05/08/2018 SUBJECTIVE: The patient continues to slowly improve. The patient is sitting upright in a chair this morning. He denies significant pulmonary symptoms including cough, congestion, and wheezing. His bowel movements continue to be intermittently loose, although improved from admission. P.o. intake is adequate. He denies fevers, chills, nausea, or vomiting. OBJECTIVE: Vital Signs: T-max 98.2 degrees, heart rate 59 to 91, respirations 17 to 18, blood pressure 122 to 169 over 87 to 96. General: No acute distress. Cardiovascular: Irregularly irregular. No significant murmurs, rubs, or gallops. Pulmonary: Clear to auscultation bilaterally. Abdomen: Soft, nontender, nondistended. Positive bowel sounds. Extremities: Moves all extremities well. No significant clubbing, cyanosis, or edema. Dermatologic: Evaluation reveals no evidence of rash. LABORATORY DATA: None. ASSESSMENT AND PLAN: 1. Bronchopneumonia. Patient has achieved significant improvement, although not resolution with Rocephin, azithromycin, prednisone, and bronchodilators. For now, we will continue his current regimen. We will pursue further steroid taper once appropriate. 2. Mild volume overload. The patient was diagnosed upon admission and treated effectively with Lasix therapy. He has not required repeat medical intervention since that time. He is euvolemic on examination today. 3. Atrial fibrillation with rapid ventricular response. The patient currently is rate controlled. He is not a candidate for full anticoagulation secondary to his extreme fall risk. He is currently asymptomatic. 4. Hyperglycemia/diabetes. This is improving with decreasing steroid intervention. We will continue sliding scale insulin. 5. Hypertension. Blood pressure today is slightly elevated. For now, we will continue his current regimen. We will determine if further intervention is necessary depending on his blood pressure trend in the future. 6. Hyperlipidemia. We will continue atorvastatin therapy. 7. Myasthenia gravis. The patient's symptoms are well controlled with azathioprine therapy. 8. Alteration of mental status. The patient's mental status is approaching baseline. We will remain aware. 9. Diarrhea. The patient continues to have intermittent episodes. Stool studies returned negative. Aricept has been held. While symptoms have improved, they have not completely resolved. We will continue supportive care for now. 10. Profound weakness. The patient is being treated with physical therapy. We will plan transfer to rehabilitation on Thursday once bed is available. DISPOSITION: At this point, patient continues to require [facility] care in a hospital setting. We will plan discharge to rehabilitation on Thursday as described. cc: Arcadio Cueva MD
[2018-05-08] MEDS: ATIVAN PO SCH (20:41)
[2018-05-08] MEDS: LIPITOR PO SCH (20:41)
[2018-05-08] MEDS: SEROQUEL PO SCH (20:42)
[2018-05-08] MEDS: PLAVIX PO SCH (20:42)
[2018-05-09] MEDS: XOPENEX NEB INH SCH ×6 (03:40→23:30)
[2018-05-09] MEDS: HUMALOG SUBQ SCH ×4 (06:12→21:13)
[2018-05-09] MEDS: PREDNISONE PO SCH (08:11)
[2018-05-09] MEDS: NAMENDA XR PO SCH (08:11)
[2018-05-09] MEDS: ZOLOFT PO SCH (08:11)
[2018-05-09] MEDS: IMURAN PO SCH (08:11)
[2018-05-09] MEDS: PRINIVIL PO SCH ×2 (08:11→21:12)
[2018-05-09] MEDS: LOVENOX SUBQ SCH (08:11)
[2018-05-09] MEDS: ROCEPHIN 1 GM in NS 50 ML IV SCH (08:12)
[2018-05-09] MEDS: ZITHROMAX 500 MG/NS 500 MG/250 ML IVPB IV SCH (08:52)
--- NOTE | 2018-05-09 10:25 | PROGRESS NOTE ---
DATE: 05/09/2018 HISTORY: Mr. Sanchez was admitted to [facility] with a community-acquired pneumonia. He is currently on IV Rocephin and Zithromax. Clinically, he is doing well. He is breathing comfortably. O2 saturations are ranging from 94-98% on room air. He has a minimal nonproductive cough. He remains in atrial fibrillation. He denies any chest pain, palpitations, or anginal equivalents. His heart rate is ranging from 61 to 69. He has a history of type 2 non-insulin- dependent diabetes mellitus. Blood sugars are generally well controlled, ranging from 93 to 131. PHYSICAL EXAMINATION: Vital Signs: Temperature 97.6 degrees, pulse 69, respiratory rate 14, BP 159/80. CV: Irregularly irregular. Lungs: Clear. Abdomen: Soft, nontender, with active bowel sounds. Extremities: Without edema. ASSESSMENT AND PLAN: 1. Bronchopneumonia. Clinically, Mr. Sanchez continues to improve. He is breathing comfortably. He has a minimal cough. His lung strauss are clear. I will transition him to oral Levaquin today. We will continue nebulizer treatments. 2. Atrial fibrillation. He remains in atrial fibrillation. His heart rate is well controlled. Given his age and frequent falls, he is not a candidate for anticoagulation with Coumadin or medicines like Xarelto. 3. Type 2 noninsulin-dependent diabetes mellitus. We will continue pattern of sugars and a Humulin R sliding scale. cc: MD Arcadio Modi MD
[2018-05-09] MEDS: NS NEB INH SCH (12:14)
[2018-05-09] MEDS ORDERED: LOMOTIL PO PRN (13:04)
[2018-05-09] MEDS: PLAVIX PO SCH (21:12)
[2018-05-09] MEDS: SEROQUEL PO SCH (21:12)
[2018-05-09] MEDS: ATIVAN PO SCH (21:12)
[2018-05-09] MEDS: LIPITOR PO SCH (21:12)
[2018-05-10] MEDS: XOPENEX NEB INH SCH ×4 (03:40→11:52)
[2018-05-10] MEDS: HUMALOG SUBQ SCH (06:39)
[2018-05-10 07:48] VITALS: BP 153/91
[2018-05-10] MEDS: ZOLOFT PO SCH (09:09)
[2018-05-10] MEDS: NAMENDA XR PO SCH (09:09)
[2018-05-10] MEDS: VITAMIN D PO SCH (09:09)
[2018-05-10] MEDS: PREDNISONE PO SCH (09:10)
[2018-05-10] MEDS: LOVENOX SUBQ SCH (09:10)
[2018-05-10] MEDS: IMURAN PO SCH (09:10)
[2018-05-10] MEDS: PRINIVIL PO SCH (09:11)
[2018-05-10] MEDS ORDERED: PNEUMOVAX 23 IM ONE (09:20)
--- NOTE | 2018-05-10 09:46 | DISCHARGE SUMMARY ---
ADMISSION DATE: 05/03/2018 DISCHARGE DATE: 05/10/2018 ADMISSION DIAGNOSIS: Alteration of mental status. DISCHARGE DIAGNOSES: 1. Bronchopneumonia, improving. 2. Mild volume overload, resolved. 3. Atrial fibrillation with rapid ventricular response, rate controlled. 4. Alteration of mental status/metabolic encephalopathy, above the baseline dementia. 5. Hyperglycemia/diabetes, present on arrival, but with exacerbation associated with steroids. 6. Hypertension, present on arrival. 7. Hyperlipidemia, present on arrival. 8. Myasthenia gravis, present on arrival. 9. Diarrhea, present on arrival, but improved without resolution since discontinuing Aricept. 10. Profound weakness secondary to above. CONSULTATIONS: None. PROCEDURES: 1. A CT scan of the head was performed on 05/03/2018, which revealed essentially stable chronic changes. 2. A chest x-ray was performed on 12/01/2017, which revealed questionable bronchopneumonia. HISTORY AND PHYSICAL EXAMINATION: See admit note. PHYSICAL EXAMINATION PRIOR TO DISCHARGE: Vital signs: Temperature 97.9 degrees, heart rate 73, respirations 15, blood pressure is 153/91, oxygen saturation is 94% on room air. General: No acute distress. Cardiovascular: Irregularly, irregular. No significant murmurs, rubs, or gallops. Pulmonary: Clear to auscultation bilaterally. Adequate air movement. Abdomen: Soft, nontender, and nondistended. Positive bowel sounds. Extremities: Moves all extremities well. No significant clubbing, cyanosis, or edema. Dermatologic: Evaluation reveals no evidence of rash. LABORATORY DATA PRIOR TO DISCHARGE: None. HOSPITAL COURSE: Patient was admitted, as per history and physical examination. HOSPITAL COURSE PER CONDITION IS FOLLOWS: 1. Bronchopneumonia - Upon admission, patient was noted to have significant cough, congestion, and shortness of breath. Chest x-ray confirmed a presumed bronchopneumonia. The patient was placed on Rocephin, azithromycin, Solu-Medrol, and bronchodilators. With aggressive intervention, patient's condition rapidly improved. At time of discharge, patient was wheeze free. He continues to have intermittent, although, nonproductive cough. The patient will complete 4 additional days of cefdinir. A prednisone taper starting at 20 mg decreasing 5 mg daily until off will be prescribed. Patient will continue Xopenex while in rehabilitation. Overall, condition is vastly improved. 2. Mild volume overload - This was a questionable diagnosis upon admission. He was treated with Lasix therapy. He has not required any additional Lasix while hospitalized. We will remain aware. 3. Atrial fibrillation with rapid ventricular response - The patient was diagnosed upon admission. With resuming his home medications, his atrial fibrillation became rate controlled. Throughout hospitalization, no additional episodes of a rapid ventricular response were noted. The patient will be discharged on his home regimen. He is not a candidate for full anticoagulation secondary to his multiple recent falls/extreme fall risk. 4. Alteration of mental status/metabolic encephalopathy above baseline - Upon admission, patient was noted to be considerably altered. This likely was a consequence of his underlying acute medical issues as well as medications. With treatment of his bronchopneumonia and medication adjustments, his mentation has returned to baseline. The patient does have underlying dementia, and will be continued on an aggressive medical regimen. 5. Diarrhea - Patient had complained of multiple episodes as an outpatient. Stool studies, upon admission, returned negative. The patient's Aricept was held with improvement, although, not complete resolution. At this point, the question is raised to whether antibiotics may be playing a role. The patient will complete antibiotics as described above. Once complete, a question will be raised to whether this resolves simply with stopping Aricept or if further intervention may be warranted. If this continues, Questran may be an option. 6. Profound weakness - Patient's weakness has been increasing over the course of the last 2 to 4 weeks. This likely was a consequence of his acute medical conditions. While hospitalized, he was treated with physical therapy. I anticipate a full recovery while at rehabilitation. Our goal is to return to the Memory unit of his assisted-living facility. 7. Hyperglycemia/diabetes - The patient has a longstanding history of diabetes. Upon admission, he was treated with dietary modification alone. With steroid intervention, blood sugars increased. He was treated with sliding scale insulin. With a steroid taper, blood sugars have improved. This will need to be followed as an outpatient as well. 8. Hypertension - Patient has longstanding disease. We will continue his home regimen for now. He has had significant lability while hospitalized. I would encourage a followup on this as an outpatient as well. 9. Hyperlipidemia - The patient was continued on atorvastatin therapy while hospitalized. 10. Myasthenia gravis - Patient has longstanding disease. He is treated with azathioprine therapy. Symptoms remain controlled. DISCHARGE CONDITION: Good. DISPOSITION: Discharged to rehabilitation. MEDICATIONS: 1. Atorvastatin 40 mg at bedtime. 2. Imuran 50 mg daily. 3. Plavix 75 mg at bedtime. 4. Lomotil as needed for loose stools. 5. Vitamin D3 50,000 units every 7 days. 6. Xopenex 0.63 mg every 4 hours while awake. 7. Lisinopril 40 mg in the morning and 20 mg in the evening. 8. Lorazepam 1 mg at bedtime. 9. Namenda XR 28 mg daily. 10. Seroquel 100 mg at bedtime. 11. Sertraline 100 mg daily. 12. Cefdinir 300 mg twice daily for 4 days. 13. Vitamin B12 1000 mcg IM monthly. 14. [place]-ID [facility] as needed. 15. Prednisone taper starting at 20 mg day 1 and decreasing 5 mg daily until off. FOLLOWUP: The patient is to follow up with me upon discharge from rehabilitation. cc: Arcadio Cueva MD
[2018-05-10] MEDS ORDERED: ROCEPHIN 1 GM in NS 50 ML IV SCH (10:00)
== END 2018-05-10 12:02 | DRG 193 ==
LOC: ED 02:04 → EDIPHOLD 08:40 → 3N 14:33
PROVIDERS: ADMIT Internal Medicine; ATTEND Internal Medicine
CPT/HCPCS: 36415; 70450; 71010; 71045; 80048; 80053; 81001; 82140; 82270; 82805; 82948; 83605; 83735; 83880; 84484; 85025; 85379; 85610; 85730; 87040; 87045; 87046; 87205; 87275; 87276; 87324; 87804; 89055; 90732; 93005; 93306; 94640; 94761; 94762; 96365; 96367; 96375; 97162; 97530; 99284; 99285; A9270; J0456; J0696; J1650; J1815; J1940; J2920; J2930; J7030; J7500; J7506; J7512; XXXXX

== ENCOUNTER 2019-02-11 09:20 | Inpatient (IN) ==
--- NOTE | 2019-02-11 10:10 | PROVIDER DOCUMENTATION ---
HPI-Neurological Disorder - General Chief Complaint: Altered Mental Status Stated Complaint: FALL,DISORIENT Time Seen by Provider: 02/11/19 09:38 Allergies/Adverse Reactions: Patient Allergies Allergy/AdvReac Type Severity Reaction Status Date / Time metformin Allergy DIARRHEA Verified 02/11/19 09:54 Home Medications: Home Medication List Medication Instructions Recorded Confirmed Last Taken Type LISINOpril [Prinivil] 40 mg PO QAM 09/07/14 02/11/19 02/11/19 History ATORVAstatin [Lipitor] 40 mg PO QHS 05/03/18 02/11/19 02/10/19 History Azathioprine [Imuran] 50 mg PO DAILY 05/03/18 02/11/19 02/11/19 History Clopidogrel Bisulfate [Plavix] 75 mg PO HS 05/03/18 02/11/19 02/10/19 History Lisinopril 20 mg PO HS 05/03/18 02/11/19 02/10/19 History Lorazepam [Ativan] 1 mg PO QHS 05/03/18 02/11/19 02/10/19 History Memantine HCl [Namenda Xr] 28 mg PO DAILY 05/03/18 02/11/19 02/11/19 History Sertraline [Zoloft] 100 mg PO DAILY 05/03/18 02/11/19 02/11/19 History l [place]ass[place]/B Bifidum/B Longum 1 each PO PRN PRN 05/03/18 02/11/19 Unknown History [[employer] Capsule] Cholecalciferol (Vitamin D3) 50,000 unit PO DIRECTED #1 05/10/18 02/11/19 Unknown Rx [Vitamin D] capsule Cyanocobalamin (Vitamin B-12) 1,000 mcg IM DIRECTED #1 vial 05/10/18 02/11/19 Unknown Rx [Cyanocobalamin Injection] Diphenoxylate/Atropine [Lomotil] 1 each PO DIRECTED PRN PRN 05/10/18 02/11/19 Unknown Rx tablet Levalbuterol Neb [Xopenex Neb] 0.63 mg INH RTQ4H neb 05/10/18 02/11/19 Unknown Rx Quetiapine [Seroquel] 100 mg PO QHS tablet 05/10/18 02/11/19 02/10/19 Rx - History of Present Illness-Neuro Nature of Presenting Problem: ER ([facility]), PATIENT FELL TWICE WHILE AT ASSISTED LIVING LAST NIGHT. STATES PATIENT DID NOT HIT HEAD. STATES UPON WAKING THIS AM, PATIENT WAS DISORIENTED. PATIENT UNABLE TO PROVIDE NAME OR BIRTHDAY IN TRIAGE. STATES MOST OF THE TIME PATIENT IS A&O X3 Severity: reports: moderate Onset/Duration: reports: unsure, gradual Timing: reports: still present Context: reports: none Character of Altered Mental Status: reports: confused Any recent trauma/injury?: reports: minor Character of Deficits: reports: decreased ability to stand Cognitive Baseline: memory loss Gait Baseline: walks only with assistance Associated Symptoms: reports: denies symptoms Similar Symptoms Previously?: No Recently seen or treated by another doctor?: No - Seizure First time to have a seizure?: No Witnessed seizure?: No Review of Systems - Adult - REVIEW OF SYSTEMS - ADULT Constitutional: reports: roland. denies: fever Eyes: reports: no symptoms reported Ears, Nose, Mouth & Throat: reports: no symptoms reported Cardiovascular: reports: no symptoms reported Respiratory: reports: no symptoms reported Gastrointestinal: reports: no symptoms reported Genitourinary: reports: no symptoms reported Musculoskeletal: reports: muscle weakness Integumentary: reports: no symptoms reported Neurological: reports: other (confusion) Psychiatric: reports: no symptoms reported Endocrine: reports: no symptoms reported Hematologic/Lymphatic: reports: no symptoms reported Allergic/Immunologic: reports: no symptoms reported Past History - Adult - PAST MEDICAL HISTORY-ADULT Review of Records: reports: Nursing Assessment Review Major Childhood Illnesses: reports: denies history Cardiovascular: reports: A-Fib, CAD, HTN, hyperlipidemia Respiratory: reports: denies history Gastrointestinal: reports: denies history Obstetrical/Gynecological: reports: denies history Genitourinary: reports: prostate cancer Musculoskeletal: reports: other (gout; myasthenia gravis) Neurological: reports: dementia Endocrine/Immune: reports: Diabetes Other Conditions: reports: denies history - PRIOR SURGERIES/PROCEDURES Surgical/Procedure History: reports: reviewed, not pertinent, other (TURP, thymus gland removal) - IMMUNIZATION STATUS Childhood Immunizations: See Nurse Assessment Flu Vaccine: UTD - FAMILY HISTORY Family History: reviewed, not pertinent Physical Exam- Neurological - Physical Exam-Neuro Initial Vital Signs Reviewed: Yes General Appearance: alert Eye Exam: bilateral eye: PERRL, EOMI HENMT: normocephalic/atraumatic, moist mucous membranes Head Injury: no evidence of injury. 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 Exam: normal speech, PERRL Coordination/Gait: normal gait Motor/Sensory: no motor deficit, no sensory deficit, no pronator drift Neurologic: grossly normal Integumentary: warm/dry Progress - PLAN OF CARE/RESULTS Progress/Plan/Lab Results: Vital Signs - 8 hr 02/11/19 09:44 02/11/19 09:46 02/11/19 10:08 Pulse Rate 80 79 83 Respiratory Rate 18 23 15 Blood Pressure 176/86 150/99 O2 Sat by Pulse Oximetry 95 96 97 02/11/19 11:00 02/11/19 14:10 Pulse Rate 77 Respiratory Rate 14 Blood Pressure O2 Sat by Pulse Oximetry 96 96 Laboratory Results - last 24 hr 02/11/19 02/11/19 02/11/19 09:34 10:10 10:10 WBC 6.48 RBC 4.64 L Hgb 15.1 Hct 45.3 MCV 97.6 MCH 32.5 H MCHC 33.3 RDW Std Deviation 13.0 Plt Count 147 MPV 10.7 H Immature Gran % (Auto) 0.0 Neut % (Auto) 68.7 Lymph % (Auto) 17.1 L [place] % (Auto) 10.0 H Eos % (Auto) 3.7 Baso % (Auto) 0.5 Immature Gran # (Auto) 0.00 Neut # (Auto) 4.45 Lymph # (Auto) 1.11 L [place] # (Auto) 0.65 H Eos # (Auto) 0.24 Baso # (Auto) 0.03 PT INR PTT (Actin FS) Sodium 145 Potassium 3.9 Chloride 110 H Carbon Dioxide 24 L Anion Gap 11 BUN 20 Creatinine 1.2 Estimated GFR/1.73 m2 59 BUN/Creatinine Ratio 17 Glucose 93 POC Glucose 90 Calculated Osmolality 291 Calcium 8.8 Total Bilirubin 0.59 AST 27 ALT 15 Alkaline Phosphatase 88 Creatine Kinase 153 Troponin T Total Protein 6.7 Albumin 4.2 Globulin 2.5 Albumin/Globulin Ratio 1.7 Plasma Lactate Urine Source Urine Color Urine Turbidity Urine pH Ur Specific Collins Urine Protein Ur Glucose (Stick) Ur Ketones (Stick) Urine Blood Urine Nitrite Urine Bilirubin Urobilinogen Dipstick Urine Leukocytes Urine WBC (Auto) Urine RBC (Auto) U Epithel Cells (Auto) Urine Bacteria (Auto) 02/11/19 02/11/19 02/11/19 10:10 10:10 10:10 WBC RBC Hgb Hct MCV MCH MCHC RDW Std Deviation Plt Count MPV Immature Gran % (Auto) Neut % (Auto) Lymph % (Auto) [place] % (Auto) Eos % (Auto) Baso % (Auto) Immature Gran # (Auto) Neut # (Auto) Lymph # (Auto) [place] # (Auto) Eos # (Auto) Baso # (Auto) PT 14.0 INR 1.07 PTT (Actin FS) 27.3 Sodium Potassium Chloride Carbon Dioxide Anion Gap BUN Creatinine Estimated GFR/1.73 m2 BUN/Creatinine Ratio Glucose POC Glucose Calculated Osmolality Calcium Total Bilirubin AST ALT Alkaline Phosphatase Creatine Kinase Troponin T < 0.010 Total Protein Albumin Globulin Albumin/Globulin Ratio Plasma Lactate Urine Source CLEAN CATCH Urine Color YELLOW Urine Turbidity CLEAR Urine pH 5.5 Ur Specific Collins 1.027 Urine Protein 30 A Ur Glucose (Stick) NEGATIVE Ur Ketones (Stick) NEGATIVE Urine Blood SMALL A Urine Nitrite NEGATIVE Urine Bilirubin NEGATIVE Urobilinogen Dipstick NORMAL Urine Leukocytes NEGATIVE Urine WBC (Auto) <10 Urine RBC (Auto) <10 U Epithel Cells (Auto) <10 Urine Bacteria (Auto) NEGATIVE 02/11/19 02/11/19 10:24 12:52 WBC RBC Hgb Hct MCV MCH MCHC RDW Std Deviation Plt Count MPV Immature Gran % (Auto) Neut % (Auto) Lymph % (Auto) [place] % (Auto) Eos % (Auto) Baso % (Auto) Immature Gran # (Auto) Neut # (Auto) Lymph # (Auto) [place] # (Auto) Eos # (Auto) Baso # (Auto) PT INR PTT (Actin FS) Sodium Potassium Chloride Carbon Dioxide Anion Gap BUN Creatinine Estimated GFR/1.73 m2 BUN/Creatinine Ratio Glucose POC Glucose Calculated Osmolality Calcium Total Bilirubin AST ALT Alkaline Phosphatase Creatine Kinase Troponin T Total Protein Albumin Globulin Albumin/Globulin Ratio Plasma Lactate 1.5 0.7 Urine Source Urine Color Urine Turbidity Urine pH Ur Specific Collins Urine Protein Ur Glucose (Stick) Ur Ketones (Stick) Urine Blood Urine Nitrite Urine Bilirubin Urobilinogen Dipstick Urine Leukocytes Urine WBC (Auto) Urine RBC (Auto) U Epithel Cells (Auto) Urine Bacteria (Auto) Orders Category Date Time Status Admit - [facility] Routine AdmDCTranf 02/11/19 13:58 Active Activity - Up Ad Ara ORDERED Care 02/11/19 13:58 Active Cardiac Monitoring DIRECTED Care 02/11/19 09:59 Active IV Insertion ORDERED Care 02/11/19 09:59 Completed Neurological Check PRN Care 02/11/19 13:58 Active Notify MD of + Sepsis Screen NOW Care 02/11/19 09:59 Active Notify Physician As Ordered Care 02/11/19 09:59 Active Vital Signs Order ROUTINE Care 02/11/19 13:58 Active Regular Diet Diet 02/11/19 14:00 Active CHEST-1 VIEW [RAD] Stat Exams 02/11/19 09:[address] HEAD W/O CONTRAST [CT] Stat Exams 02/11/19 10:01 Completed BLOOD CULTURE [BLDCUL] Stat Lab 02/11/19 10:24 Results CBC WITH DIFF [HEME] Stat Lab 02/11/19 10:10 Completed CK PROFILE [SP CHEM] Stat Lab 02/11/19 10:10 Completed COMPREHENSIVE METABOLIC PANEL [CHEM] Stat Lab 02/11/19 10:10 Completed LACTATE, PLASMA [CHEM] Lab 02/11/19 10:24 Completed LACTATE, PLASMA [CHEM] Lab 02/11/19 12:52 Completed LACTATE, PLASMA [CHEM] Lab 02/11/19 15:50 Completed PROTIME WITH INR [COAG] Stat Lab 02/11/19 10:10 Completed PTT [COAG] Stat Lab 02/11/19 10:10 Completed TROPONIN T Stat Lab 02/11/19 10:10 Completed URINALYSIS W/POSS RFLX CULT [URINALYSIS] Stat Lab 02/11/19 10:10 Completed 0.9% Sodium Chloride Inj [Ns] 1,000 ml Med 02/11/19 13:58 Discontinued IV 100 mls/hr Acetaminophen [Tylenol] Med 02/11/19 13:58 Discontinued 650 mg PO Q6H PRN PRN Ondansetron [Zofran] Med 02/11/19 13:58 Discontinued 4 mg IV Q4H PRN PRN Oxygen Device Stat Oth 02/11/19 09:59 Completed EKG [EKG] Stat Ther 02/11/19 09:35 Draft Transfer/Admit Order [TRANSFER] Routine Transfer 02/11/19 14:00 Completed Result Diagrams: 02/11/19 10:10 02/11/19 10:10 - REASSESSMENT Reassessment #1 Status: other (daughter at the bedside, i informed about the test results, and conversation with Dr Dorsey who could not make any decision at this time.) Departure - Departure Date of Disposition Decision: 02/11/19 Time of Disposition Decision: 15:35 DIAGNOSIS: Weakness, Falls Disposition: ADMITTED INPATIENT 09 Certified Medical Emergency: Emergent Condition: Fair - Critical Care Note This patient required my direct & personal management of CC.: No Attestation - Physician/ SOFIE Attestation Patient care was provided by Advanced Practice Provider:: No The physician spent face to face time with patient:: Yes Advanced Practice Provider documentation review:: Supervising physician onsite and consulted in the evaluation and care of this patient. The physician did have a face to face encounter with the patient.
--- NOTE | 2019-02-11 10:15 | Diag Imaging Result Doc PS360 ---
EXAM: CHEST-1 VIEW HISTORY: altered mental status TECHNIQUE: Single view COMPARISON: 05/03/2018 FINDINGS: The lungs are well expanded. The heart is mildly prominent and there are sternal wires. The vessels are not distended. There are no infiltrates. No effusion identified. Calcified left hilar lymph nodes with scattered granuloma. IMPRESSION: Mild cardiomegaly. Electronically signed by Carson Clayton 02/11/2019 10:13 AM
[2019-02-11 10:23] LABS: BASO# 0.03 X1000 (0.0-0.2); BASO% 0.5 % (0.0-0.8); BILIRUBIN URINE NEGATIVE (NEGATIVE); BLOOD URINE SMALL (NEGATIVE); COLOR YELLOW; EOS# 0.24 X1000 (0.0-0.7); EOS% 3.7 % (0.0-10.0); GLUCOSE URINE NEGATIVE (NEGATIVE); HEMATOCRIT 45.3 % (42.0-52.0); HEMOGLOBIN 15.1 g/dL (14.0-18.0); KETONE URINE NEGATIVE (NEGATIVE); LEUKOCYTES URINE NEGATIVE (NEGATIVE); LYMPH# 1.11 X1000 (1.2-3.4); LYMPH% 17.1 % (20.5-51.1); MCH 32.5 PG (27-31); MCHC 33.3 g/dL (33-37); MCV 97.6 FL (81-99); MONO# 0.65 X1000 (0.11-0.59); MPV 10.7 FL (7.4-10.4); NEUT# 4.45 X1000 (1.4-6.5); NEUT% 68.7 % (42.2-75.2); NITRITE URINE NEGATIVE (NEGATIVE); PH URINE 5.5; PLT 147 X1000 (130-400); PROTEIN URINE 30 mg/dL (NEGATIVE); RBC 4.64 XMIL (4.7-6.1); SP GRAVITY URINE 1.027; TURBIDITY URINE CLEAR (CLEAR); URINE SOURCE CLEAN CATCH; UROBILINOGEN URINE NORMAL (NORMAL); WBC 6.48 X1000 (4.8-10.8)
[2019-02-11 10:25] LABS: UR EPITHELIAL CELLS <10 /HPF (<10); URINE BACTERIA NEGATIVE /HPF; URINE RBC <10 /HPF (<10); URINE WBC <10 /HPF (<10)
[2019-02-11 10:57] LABS: ALB/GLOB RATIO 1.7; ALBUMIN 4.2 g/dL (3.5-5.0); CALCIUM 8.8 mg/dL (8.8-10.2); CREATININE 1.2 mg/dL (0.7-1.2); POTASSIUM 3.9 mmol/L (3.5-5.1); TOTAL BILIRUBIN 0.59 mg/dL (0.20-1.00); TOTAL PROTEIN 6.7 g/dL (6.3-8.3)
--- NOTE | 2019-02-11 11:39 | Diag Imaging Result Doc PS360 ---
CT HEAD W/O CONTRAST - 02/11/2019 INDICATION: confusion COMPARISON: 05/03/2018 FINDINGS: There is stable mild cerebral atrophy. Stable advanced periventricular white matter chronic microvascular ischemia. No intracranial mass or hemorrhage. The skull is intact. The sinuses, mastoids, and middle ears are clear. IMPRESSION: No acute disease or change from prior. This exam was performed using automated exposure control, adjustment of mA or kV according to patient size, and/or use of iterative reconstruction technique Electronically signed by Jordan Ríos 02/11/2019 11:37 AM
[2019-02-11 11:45] LABS: INR 1.07
[2019-02-11 11:46] LABS: PTT 27.3 Seconds (22.3-41.8)
--- NOTE | 2019-02-11 11:51 | ED EKG INTERP ---
This chart was entered by Janey Reilly Scribe, acting as scribe for Lanie Flowers MD. EKG Interpretation - EKG Time of EKG reading by physician:: 09:35 EKG Read and Signed by:: Lanie Flowers EKG Interpretation (*Must complete 3 of following elements*): Abnormal Rate: 76 Rhythm: atrial fibrillation QRS: normal ST Wave: non-specific ST changes Attestation - Physician/ SOFIE Attestation Patient care was provided by Advanced Practice Provider:: No The physician spent face to face time with patient:: Yes Advanced Practice Provider documentation review:: Supervising physician onsite and consulted in the evaluation and care of this patient. The physician did have a face to face encounter with the patient. This chart was documented by the indicated scribe, (Janey Reilly Scribe) and accurately reflects the services I performed and decisions made by me, Lanie Flowers MD, as attested by the provider's signature.
--- NOTE | 2019-02-11 12:29 | EKG Report ---
Test Performed on : 02/11/2019 09:35:58 AM Test Reason : FALL Blood Pressure : / mmHG Vent. Rate : 076 BPM Atrial Rate : 082 BPM P-R Int : 000 ms QRS Dur : 098 ms QT Int : 302 ms P-R-T Axes : 000 -29 165 degrees QTc Int : 339 ms Atrial fibrillation. Nonspecific ST and T wave abnormality Abnormal ECG When compared with ECG of 03-MAY-2018 02:05, Questionable change in QRS axis Unconfirmed Result
[2019-02-11] MEDS ORDERED: TYLENOL PO PRN ×2 (13:58→18:38)
[2019-02-11] MEDS ORDERED: ZOFRAN IV PRN (13:58)
[2019-02-11] MEDS ORDERED: NS 1,000 ML IV ONE (13:58)
[2019-02-11] MEDS ORDERED: XOPENEX NEB INH PRN (18:42)
[2019-02-11] MEDS ORDERED: LOMOTIL PO PRN (18:42)
[2019-02-11] MEDS ORDERED: CYANOCOBALAMIN IM SCH (18:45)
[2019-02-11] MEDS ORDERED: VITAMIN D PO SCH (18:45)
--- NOTE | 2019-02-11 19:47 | HISTORY AND PHYSICAL ---
PRIMARY CARE PHYSICIAN: Dr. Arcadio Cueva. CHIEF COMPLAINT: Alteration of mental status, profound weakness. HISTORY OF PRESENT ILLNESS: A 78-year-old white male with a very complicated past medical history presents for evaluation of above-mentioned symptoms. Pertinent history of present illness began over the course of the last several months. Over that time period, patient has experienced increasing frequency of incontinent loose stools. Stool studies have returned without significant abnormalities. Multiple medication adjustments have been made. Ultimately, patient has achieved reasonable control, although not resolution. The patient has demonstrated a slow decline in his mental status. He also has noted a slow decline in his energy level. Last night patient suffered 2 falls. Per report, there was no evidence of head injury nor was there evidence of loss of consciousness. The patient was assisted back to his bed at his assisted living facility. This morning upon patient's 's arrival, patient was noted to be disoriented above his baseline. She noted him to have profound weakness. Because of this, patient was transported to the emergency department for further evaluation and management. Upon arrival, full evaluation was pursued. No significant abnormalities were noted per CT scan of the head and laboratory evaluation. Because of his profound weakness with multiple falls and inability to thrive at his assisted living facility, patient will be admitted to the hospital for full evaluation and management. Of note, patient denies fevers, chills, nausea, vomiting, shortness of breath, chest pain, dysuria, hematuria, pyuria, hematochezia, or melena. The patient has been noted to have increasing sleeping during the day. PAST MEDICAL HISTORY: 1. Abnormal skin examination with multiple actinic keratoses and seborrheic keratoses. 2. Atrial fibrillation. 3. History of mild carotid stenosis. 4. Advanced dementia. 5. Type 2 diabetes. 6. Insomnia. 7. Hypertension. 8. Gout. 9. History of hematuria with negative evaluation by Dr. Bauman. 10. Hyperlipidemia. 11. Ischemic heart disease. 12. Left ventricular hypertrophy. 13. History of myasthenia gravis. 14. Palpitations. 15. History of prostate cancer status post radical prostatectomy in 1998. 16. History of a simple renal cyst. CURRENT MEDICATIONS: 1. Ativan 1 mg at bedtime. 2. Atorvastatin 40 mg at bedtime. 3. Vitamin B12 1000 mcg IM monthly. 4. Imuran 50 mg daily. 5. Levalbuterol nebulizer every 4 hours as needed. 6. Lisinopril 40 mg in the morning and 20 mg at bedtime. 7. Lomotil after each loose stool as needed. 8. Namenda XR 28 mg daily. 9. Plavix 75 mg at bedtime. 10. Seroquel 100 mg at bedtime. 11. Sertraline 100 mg daily. 12. Vitamin D 5000 units weekly. ALLERGIES: Patient is allergic to Aricept which causes diarrhea, Exelon which caused alteration of mental status, metformin which causes nausea vomiting and diarrhea, Norvasc which causes a myasthenia gravis exacerbation, and Remeron which proved ineffective. SOCIAL HISTORY: Patient denies tobacco, alcohol or illicit drug use. 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 He is unable to exercise routinely. FAMILY HISTORY: Patient's father passed at age 83 secondary to complications of heart disease. Patient's mother passed at age 39 secondary to complications of a hepatoma. REVIEW OF SYSTEMS: A 12 point review of systems was performed. Pertinent positives and negatives noted in history present illness. PHYSICAL EXAMINATION: VITAL SIGNS: Temperature 97.8, heart rate 79, respirations 18, blood pressure 164/95. GENERAL: Chronically ill appearing, no acute distress. HEENT: Normocephalic, atraumatic. Pupils equal, round, reactive to light. Extraocular muscles intact. Sclerae anicteric. [place] conjunctivae. Oral and nasopharynx clear without exudate. NECK: Supple. No lymphadenopathy. No thyromegaly. No bruits auscultated. CARDIOVASCULAR: Irregularly irregular. No significant murmurs, rubs, or gallops. PULMONARY: Clear to auscultation bilaterally. ABDOMEN: Soft, nontender, nondistended. Positive bowel sounds. EXTREMITIES: Moves all extremities well. No significant clubbing, cyanosis, or cyanosis. Trace to 1+ lower extremity edema bilaterally. NEUROLOGIC: Cranial nerves 2-12 grossly intact. Motor and sensory grossly intact. PSYCHOLOGIC: Appropriate. LABORATORY DATA: White blood cell count 6.48, hemoglobin 15.1, hematocrit 45.3, platelet count 147,000. PT 14.0, INR is 1.07, PTT is 27.3. Sodium 145, potassium 3.9, chloride 110, bicarb 28, BUN 20, creatinine 1.2, glucose 93, calcium 8.8, total bilirubin 0.59, total protein 6.7, albumin 4.2, alkaline phosphatase 88, AST 27, ALT 15, CK total 153. Troponin less than 0.010. Urinalysis revealed small amount of blood. No evidence of infection. CT scan of the head revealed no acute disease or change from prior. Chest x-ray revealed mild cardiomegaly. ASSESSMENT AND PLAN: A 78-year-old white male with a complicated past medical history as noted presents for evaluation of profound weakness with multiple falls and alteration of mental status above baseline dementia. Full evaluation thus far has revealed no acute abnormality. The patient will be admitted to the hospital for full evaluation and management of these conditions. 1. Admit to General Medicine. 2. Alteration of mental status-as above, this was above his baseline dementia. At this point, a CT scan of the head revealed no acute abnormalities. Laboratory evaluation suggested no acute changes. I am concerned this may represent progressive dementia. We will keep in mind this also could be a myasthenia gravis exacerbation. Intracranial process not identified on CT scan will also be considered. For now, we will continue supportive care. Depending on patient's progress while hospitalized, we will consider whether hospice care is appropriate prior to discharge. 3. Profound weakness-I suspect this is multifactorial. Patient's strength and gait stability have declined significantly over the course of the last 6 months. We will consult physical therapy. Once again, we will continue supportive care. 4. Chronic diarrhea-multiple medications have been adjusted over the course of the last several weeks. At this point, upon reviewing medications, we will hold Namenda as this could be exacerbating. We will continue Culturelle. We will add Metamucil. This will be followed as well. As above, stool studies in the past have been negative. The patient has no infectious symptoms nor abdominal discomfort associated. 5. Atrial fibrillation-because of patient's fall risk, he is not a candidate for full anticoagulation. He is rate controlled. We will follow patient on telemetry. 6. Dementia-the patient has advanced disease. As above, I plan to discontinue Namenda secondary to his diarrhea as this may be playing a role. We will need to monitor for progression of his dementia with discontinuing this medication. 7. Type 2 diabetes-this diagnosis is historical. Blood sugar upon admission was 93. We will remain aware. 8. Hyperlipidemia-we will continue patient on atorvastatin therapy. 9. Myasthenia gravis-recently, Imuran has been decreased secondary to persistent diarrhea. This may be exacerbating his weakness. Depending on patient's progress and should we achieve improvement in his diarrhea, we will consider increasing his Imuran back to his previous dosage. 10. Fluid, electrolytes, nutrition. We will monitor electrolytes. Saline lock IV. Regular diet. 11. Prophylaxis. Patient will be placed on subcu Lovenox. cc: Arcadio Cueva MD MTDD
[2019-02-11] MEDS: ATIVAN PO SCH (21:24)
[2019-02-11] MEDS: SEROQUEL PO SCH (21:24)
[2019-02-11] MEDS: PRINIVIL PO SCH (21:24)
[2019-02-11] MEDS: LIPITOR PO SCH (21:24)
[2019-02-11] MEDS: LOVENOX SUBQ SCH (21:25)
[2019-02-11] MEDS: PLAVIX PO SCH (21:25)
[2019-02-12] MEDS: IMURAN PO SCH (08:44)
[2019-02-12] MEDS: CULTURELLE PO SCH (08:44)
[2019-02-12] MEDS: ZOLOFT PO SCH (08:44)
[2019-02-12] MEDS: PRINIVIL PO SCH ×2 (08:45→20:32)
[2019-02-12] MEDS: METAMUCIL POWDER PACKET PO SCH (08:45)
--- NOTE | 2019-02-12 10:44 | PROGRESS NOTE ---
DATE: 02/12/2019 SUBJECTIVE: Mr. Pavel Sanchez has a longstanding history of dementia. He was admitted with increasing confusion and disorientation. His CT scan demonstrates chronic white matter changes. So far, there have been no evidence of infection. Cultures are pending. His chest x-ray was clear. He seems more alert this morning. He was oriented to name and place. His reports that he still has periods of confusion and disorientation. He has a longstanding history of hypertension. His blood pressure has been fluctuating widely. Systolic blood pressures have ranged from 150-170 whereas his diastolic blood pressures have ranged from 95-108. OBJECTIVE: General: This is an elderly frail 78-year-old gentleman in no apparent distress. He is sitting up in bed. He is oriented to name and place. He moves all extremities grossly. Vital signs: Temperature 97.6, pulse 68, respirations 16, BP 151/107. CV: Irregularly irregular. Lungs: Clear. Abdomen: Soft, nontender, with active bowel sounds. Extremities: Without edema. ASSESSMENT AND PLAN: 1. Altered mental status. I suspect that he may have hypertensive encephalopathy superimposed on underlying dementia. His blood pressure is quite labile. We will continue lisinopril 40 mg in the morning, 20 mg at night, and I will add amlodipine 5 mg daily. I do not want to use beta- blockers or clonidine, which potentially would slow his heart rate further or increase sedation or confusion. 2. Chronic atrial fibrillation. He remains in atrial fibrillation. His heart rate is ranging from 65-72. He denies any chest pain, palpitations, or anginal equivalents. 3. Chronic diarrhea. Dr. Cueva stopped the Imuran. They have added lactobacillus. He has not had any diarrhea in 12 hours. We will continue gentle hydration. cc: MD Arcadio Modi MD
[2019-02-12] MEDS: NORVASC PO SCH (11:02)
[2019-02-12] MEDS: LOVENOX SUBQ SCH (18:02)
[2019-02-12] MEDS: ATIVAN PO SCH (20:32)
[2019-02-12] MEDS: LIPITOR PO SCH (20:32)
[2019-02-12] MEDS: SEROQUEL PO SCH (20:32)
[2019-02-12] MEDS: PLAVIX PO SCH (20:32)
[2019-02-13 06:43] LABS: HEMATOCRIT 45.9 % (42.0-52.0); HEMOGLOBIN 15.3 g/dL (14.0-18.0); MCH 32.1 PG (27-31); MCHC 33.3 g/dL (33-37); MCV 96.4 FL (81-99); MPV 10.2 FL (7.4-10.4); RBC 4.76 XMIL (4.7-6.1); RDW 12.8 % (11.5-14.5); WBC 5.94 X1000 (4.8-10.8)
[2019-02-13 07:00] LABS: AGAP 13; BUN 17 mg/dL (8-22); CALCIUM 8.4 mg/dL (8.8-10.2); CHLORIDE 107 mmol/L (98-107); COSMO 286; ESTIMATED GFR > 60; GLUCOSE 98 mg/dL (70-104); POTASSIUM 3.6 mmol/L (3.5-5.1); SODIUM 143 mmol/L (136-145); TCO2 23 mmol/L (25-35)
[2019-02-13] MEDS: ZOLOFT PO SCH (08:49)
[2019-02-13] MEDS: PRINIVIL PO SCH ×2 (08:49→20:19)
[2019-02-13] MEDS: METAMUCIL POWDER PACKET PO SCH (08:49)
[2019-02-13] MEDS: NORVASC PO SCH (08:49)
[2019-02-13] MEDS: IMURAN PO SCH (08:49)
[2019-02-13] MEDS: CULTURELLE PO SCH (08:49)
[2019-02-13] MEDS: SEROQUEL PO SCH ×2 (10:30→20:19)
[2019-02-13] MEDS: LOVENOX SUBQ SCH (17:48)
[2019-02-13] MEDS: ATIVAN PO SCH (20:19)
[2019-02-13] MEDS: LIPITOR PO SCH (20:19)
[2019-02-13] MEDS: PLAVIX PO SCH (20:19)
[2019-02-14] MEDS: SEROQUEL PO SCH (08:16)
[2019-02-14] MEDS: CULTURELLE PO SCH (08:16)
[2019-02-14] MEDS: NORVASC PO SCH (08:16)
[2019-02-14] MEDS: ZOLOFT PO SCH (08:16)
[2019-02-14] MEDS: PRINIVIL PO SCH (08:17)
[2019-02-14] MEDS: METAMUCIL POWDER PACKET PO SCH (08:17)
[2019-02-14] MEDS: IMURAN PO SCH (08:17)
[2019-02-14 11:56] VITALS: BP 132/94
--- NOTE | 2019-02-14 19:18 | DISCHARGE SUMMARY ---
ADMISSION DATE: 02/11/2019 DISCHARGE DATE: 02/14/2019 ADMISSION DIAGNOSIS: 1. Alteration of mental status. 2. Profound weakness. DISCHARGE DIAGNOSES: 1. Alteration of mental status, likely a progression of his baseline dementia. 2. Profound weakness, likely multifactorial. 3. Chronic diarrhea, improving. 4. Atrial fibrillation, present on arrival. 5. Dementia, present on arrival. 6. Type 2 diabetes, present on arrival. 7. Hyperlipidemia, present on arrival. 8. Myasthenia gravis, present on arrival. CONSULTATIONS: None. PROCEDURES: CT scan of the head was performed on 02/11/2019 which revealed no acute disease or change from prior. HISTORY AND PHYSICAL EXAMINATION: See admit note. PHYSICAL EXAMINATION PRIOR TO DISCHARGE: Temperature 97.5 degrees, heart rate 75, respirations 16, blood pressure is 152/103. General: Chronically ill appearing, no acute distress. Cardiovascular: Irregularly irregular. No significant murmurs, rubs, or gallops. Pulmonary: Clear to auscultation bilaterally. Abdomen: Soft, nontender, nondistended. Positive bowel sounds. Extremities: Moves all extremities well. No significant clubbing or cyanosis. Trace lower extremity edema bilaterally. Dermatologic: Evaluation reveals no evidence of rash. LABORATORY DATA: Prior to discharge: None. HOSPITAL COURSE: Patient was admitted as per history and physical examination. Hospital course per condition is as follows. 1. Alteration of mental status-upon admission, patient was noted to have increased alteration above his baseline dementia. Full evaluation was pursued. CT scan revealed no acute abnormalities. Laboratory evaluation including urinalysis did not suggest an acute change. At this point, it is suggested this likely represents a progression of his underlying dementia compound by potential progression of his myasthenia gravis. The patient was continued on Imuran for his myasthenia gravis. The patient's Namenda was held secondary to diarrhea. We will continue to monitor patient closely as an outpatient. Should the patient's mental status continue a rapid decline, we will have a low threshold for consulting hospice services. 2. Profound weakness-again, this likely represents a combination of progressive dementia as well as a progressive myasthenia gravis. The patient was treated with physical therapy while hospitalized. He maintains the ability to stand with assistance and transfer. He is unable to walk unassisted or without significant risk a fall. It will be recommended that he continue to be treated with assistance with transfers. We will consider whether physical therapy or hospice care is most appropriate at discharge. 3. Chronic diarrhea-unfortunately, this has been a significant issue over the last several weeks. Medication adjustments have been made. While hospitalized, patient was treated with Metamucil on a daily basis. His Namenda was held. Bowel movements have been acceptable while hospitalized. We will continue this current plan as an outpatient. He does have Lomotil to be used if needed. 4. Atrial fibrillation-patient has longstanding disease. He is rate controlled. He is a high fall risk, thus full anticoagulation has been avoided. He is, however, treated with Plavix which he has tolerated well for several years. We will continue to follow patient. 5. Dementia-unfortunately, patient's condition is progressive. As above, Namenda was held secondary to chronic diarrhea. We will continue to follow patient's mental status for any changes with discontinuing this medication. 6. Myasthenia gravis-once again, patient has longstanding disease. Imuran has been decreased to half his previous dose secondary to diarrhea. His strength does appear to be decreasing, possibly secondary to myasthenia gravis progression versus underlying dementia. We will continue to monitor patient and treat along with the assistance of his neurologist. 7. Hyperlipidemia-patient was maintained on atorvastatin therapy while hospitalized. DISCHARGE CONDITION: Stable. DISPOSITION: Discharge to assisted living. MEDICATIONS: 1. Acetaminophen 650 mg every 6 hours as needed. 2. Atorvastatin 40 mg at bedtime. 3. Imuran 50 mg daily. 4. Vitamin D2 50,000 units every 7 days. 5. Plavix 75 mg at bedtime. 6. Vitamin B12 1000 mcg IM monthly. 7. Lomotil as needed. 8. Culturelle daily. 9. Xopenex nebulizer every 4 hours as needed. 10. Lisinopril was increased to 40 mg twice daily. 11. Lorazepam 1 mg at bedtime. 12. Metamucil powder daily. 13. Seroquel 100 mg at bedtime. 14. Zoloft 100 mg daily. FOLLOWUP: The patient is to follow up with me in approximately 1 to 2 weeks. cc: Arcadio Cueva MD MTDD
== END 2019-02-14 16:31 | DRG 884 ==
LOC: ED 09:20 → 1N 14:40
PROVIDERS: ADMIT Internal Medicine; ATTEND Internal Medicine